=== PATIENT | male | born 1955 | race Caucasian/White ===

== ENCOUNTER 2017-04-05 13:18 | Emergency (ER) | payer MEDICARE ==
--- NOTE | 2017-04-05 13:31 | ED ---
General Adult HPI - General Stated complaint: fall off ladder Time Seen by Provider: 04/05/17 13:20 Source: RN notes reviewed - History of Present Illness Initial comments: This is a 61-year-old male who states he was on the fifth step of a 6 foot ladder when it fell over to the left and he fell down on top of the ladder on his right side. Patient complains of right lateral chest pain as well as right mid back pain. Patient states when he takes a deep breath it does worsen. Patient denies hitting his head patient denies any headache patient denies any neck pain patient denies any numbness weakness. Patient denies any upper extremity or lower extremity pain. Patient denies any abdominal pain. Patient' s only complaint is right lateral and posterior rib pain. Patient denies any sternal pain. Patient denies any sites of bleeding that he knows of. Patient is on blood thinners. - Related Data Home Medications Medication Instructions Recorded Confirmed Ezetimibe [Zetia] 10 mg PO DAILY 01/15/15 04/05/17 metFORMIN HCL 1,000 mg PO BID 01/15/15 04/05/17 Insulin Glulisine (For Pump) 0.01 units SQ-PUMP CONTINUOUS 04/05/17 04/05/17 [Apidra (For Pump)] Metoprolol Succinate (ER) [Toprol 100 mg PO QAM 04/05/17 04/05/17 XL] Metoprolol Succinate (ER) [Toprol 200 mg PO DAILY@1600 04/05/17 04/05/17 Xl] Rosuvastatin [Crestor] 10 mg PO DAILY 04/05/17 04/05/17 Warfarin Sodium [Coumadin] 2.5 mg PO MOWEFR 04/05/17 04/05/17 Warfarin [Coumadin] 5 mg PO SUTUTHSA 04/05/17 04/05/17 Previous Rx's Medication Instructions Recorded Losartan [Cozaar] 50 mg PO DAILY #30 tab 06/06/16 Hydrocodone/Acetaminophen [[place] 1 each PO Q4HR PRN #20 tab 04/05/17 5-325] Ibuprofen [Motrin] 600 mg PO Q6HR PRN #20 tab 04/05/17 Allergies Allergy/AdvReac Type Severity Reaction Status Date / Time ramipril [From Altace] Allergy Rash/Hives Verified 04/05/17 14:00 Review of Systems ROS Statement: Those systems with pertinent positive or pertinent negative responses have been documented in the HPI. ROS Other: All systems not noted in ROS Statement are negative. Past Medical History Past Medical History: Atrial Fibrillation, Diabetes Mellitus, Hyperlipidemia, Hypertension, Myocardial Infarction ([place]), Osteoarthritis ([place]) Additional Past Medical History / Comment(s): SEE DR SJ Salgado&Daniel FOR CARDIAC HISTORY Last Myocardial Infarction Date:: 2011 History of Any Multi-Drug Resistant Organisms: None Reported Past Surgical History: Cardiac Ablation, Heart Catheterization With Stent Additional Past Surgical History / Comment(s): CYSTS REMOVED FROM TAILBONE AND BY RECTUM Past Anesthesia/Blood Transfusion Reactions: No Reported Reaction Date of Last Stent Placement:: 2011 Past Psychological History: No Psychological Hx Reported Smoking Status: Former smoker Past Alcohol Use History: Occasional Additional Past Alcohol Use History / Comment(s): QUIT 3 MTHS AGO Past Drug Use History: None Reported - Past Family History Brother(s) History Unknown: Yes Sister(s) History Unknown: Yes Father Additional Family Medical History / Comment(s): smoked had wilmer at age 40 Mother Family Medical History: Cancer, Congestive Heart Failure (CHF) Additional Family Medical History / Comment(s): rectal cancer General Exam - General Exam Comments Initial Comments: GENERAL: Patient is well-developed and well-nourished. Patient is nontoxic and well- hydrated and is in mild distress. No areas of trauma seen on his head or neck. ENT: Neck is soft and supple. No significant lymphadenopathy is noted. Oropharynx is clear. Moist mucous membranes. Neck has full range of motion without eliciting any pain. EYES: The sclera were anicteric and conjunctiva were pink and moist. Extraocular movements were intact and pupils were equal round and reactive to light. Eyelids were unremarkable. PULMONARY: Unlabored respirations. Good breath sounds bilaterally. No audible rales rhonchi or wheezing was noted. CARDIOVASCULAR: There is a regular rate and rhythm without any murmurs gallops or rubs. Patient has tenderness on the lateral right ribs about the eighth and ninth rib area. Patient has pain on any deep inspiration in the same vicinity. As well as in the posterior right mid back. ABDOMEN: Soft and nontender with normal bowel sounds. No palpable organomegaly was noted. There is no palpable pulsatile mass. SKIN: Skin is clear with no lesions or rashes and otherwise unremarkable. NEUROLOGIC: Patient is alert and oriented x3. Cranial nerves II through XII are grossly intact. Motor and sensory are also intact. Normal speech, volume and content. Symmetrical smile. MUSCULOSKELETAL: Normal extremities with adequate strength and full range of motion. No lower extremity swelling or edema. No calf tenderness. LYMPHATICS: No significant lymphadenopathy is noted PSYCHIATRIC: Normal psychiatric evaluation. Course Vital Signs 04/05/17 13:31 Temperature 97.1 F L Pulse Rate 112 H Respiratory 18 Rate Blood Pressure 106/59 O2 Sat by Pulse 99 Oximetry Medical Decision Making - Medical Decision Making EKG shows atrial fibrillation at 115 bpm QRS is 70 QT interval 328 QTC is 453. Patient's EKG shows no ST segment elevation or depression or T-wave abnormalities are noted Chest x-ray and rib films show a rib fracture that is displaced and one that is not and possibly 2 more rib fractures. I went in to reexamine the patient he was having no difficulty breathing and felt pretty comfortable at this time. Patient's heart rate was a little tachycardic and I asked him about and he states that he is always tachycardic and states he also is due for his metoprolol. - Lab Data Result diagrams: 04/05/17 14:08 04/05/17 14:08 Lab Results 04/05/17 04/05/17 04/05/17 Range/Units 14:08 14:08 14:08 WBC (3.8-10.6) k/uL RBC (4.30-5.90) m/uL Hgb (13.0-17.5) gm/dL Hct (39.0-53.0) % MCV (80.0-100.0) fL MCH (25.0-35.0) pg MCHC (31.0-37.0) g/dL RDW (11.5-15.5) % Plt Count (150-450) k/uL Neutrophils % % Lymphocytes % % Monocytes % % Eosinophils % % Basophils % % Neutrophils # (1.3-7.7) k/uL Lymphocytes # (1.0-4.8) k/uL Monocytes # (0-1.0) k/uL Eosinophils # (0-0.7) k/uL Basophils # (0-0.2) k/uL PT (9.0-12.0) sec INR (<1.1) APTT (22.0-30.0) sec Sodium 137 (137-145) mmol/L Potassium 6.1 H (3.5-5.1) mmol/L Chloride 103 (98-107) mmol/L Carbon Dioxide 26 (22-30) mmol/L Anion Gap 8 mmol/L BUN 25 H (9-20) mg/dL Creatinine 1.64 H (0.66-1.25) mg/dL Est GFR (MDRD) Af Amer 52 (>60 ml/min/1.73 sqM) Est GFR (MDRD) Non-Af 43 (>60 ml/min/1.73 sqM) Glucose 164 H (74-99) mg/dL Calcium 9.2 (8.4-10.2) mg/dL Total Bilirubin 0.9 (0.2-1.3) mg/dL AST 49 (17-59) U/L ALT 64 (21-72) U/L Alkaline Phosphatase 67 (38-126) U/L Total Creatine Kinase 131 (55-170) U/L CK-MB (CK-2) 1.4 (0.0-2.4) ng/mL CK-MB (CK-2) Rel Index 1.1 Troponin I <0.012 (0.000-0.034) ng/mL Total Protein 7.1 (6.3-8.2) g/dL Albumin 3.9 (3.5-5.0) g/dL Amylase 47 (30-110) U/L Lipase 40 (23-300) U/L Serum Alcohol <10 mg/dL Blood Type A Negative Blood Type Recheck CABO Indicated Antibody Screen NEGATIVE Spec Expiration Date 04/08/2017230704/05/17 04/05/17 Range/Units 14:08 14:08 WBC 13.1 H (3.8-10.6) k/uL RBC 5.90 (4.30-5.90) m/uL Hgb 17.4 (13.0-17.5) gm/dL Hct 52.3 (39.0-53.0) % MCV 88.6 (80.0-100.0) fL MCH 29.4 (25.0-35.0) pg MCHC 33.2 (31.0-37.0) g/dL RDW 14.1 (11.5-15.5) % Plt Count 199 (150-450) k/uL Neutrophils % 79 % Lymphocytes % 11 % Monocytes % 7 % Eosinophils % 1 % Basophils % 1 % Neutrophils # 10.4 H (1.3-7.7) k/uL Lymphocytes # 1.5 (1.0-4.8) k/uL Monocytes # 0.9 (0-1.0) k/uL Eosinophils # 0.2 (0-0.7) k/uL Basophils # 0.1 (0-0.2) k/uL PT 27.1 H (9.0-12.0) sec INR 2.8 (<1.1) APTT 26.6 (22.0-30.0) sec Sodium (137-145) mmol/L Potassium (3.5-5.1) mmol/L Chloride (98-107) mmol/L Carbon Dioxide (22-30) mmol/L Anion Gap mmol/L BUN (9-20) mg/dL Creatinine (0.66-1.25) mg/dL Est GFR (MDRD) Af Amer (>60 ml/min/1.73 sqM) Est GFR (MDRD) Non-Af (>60 ml/min/1.73 sqM) Glucose (74-99) mg/dL Calcium (8.4-10.2) mg/dL Total Bilirubin (0.2-1.3) mg/dL AST (17-59) U/L ALT (21-72) U/L Alkaline Phosphatase (38-126) U/L Total Creatine Kinase (55-170) U/L CK-MB (CK-2) (0.0-2.4) ng/mL CK-MB (CK-2) Rel Index Troponin I (0.000-0.034) ng/mL Total Protein (6.3-8.2) g/dL Albumin (3.5-5.0) g/dL Amylase (30-110) U/L Lipase (23-300) U/L Serum Alcohol mg/dL Blood Type Blood Type Recheck Antibody Screen Spec Expiration Date Disposition Clinical Impression: Rib fractures Disposition: HOME SELF-CARE Condition: Good Instructions: Rib Fracture (ED) Prescriptions: Hydrocodone/Acetaminophen [[place] 5-325] 1 each PO Q4HR PRN #20 tab PRN Reason: Pain Ibuprofen [Motrin] 600 mg PO Q6HR PRN #20 tab PRN Reason: For pain Referrals: Francheska Guerrero MD [Primary Care Provider] - 1-2 days Time of Disposition: 15:32
--- NOTE | 2017-04-05 14:02 | XR ---
AP pelvis HISTORY: Trauma and pain Single frontal view of the pelvis, no comparisons Bone mineralization may be slightly reduced in the right ilium, difficult to exclude an underlying le lester, alignment are maintained. Mild loss of joint space in the hips. Degenerative disc changes in th e visualized spine. There are vascular calcifications within the pelvis. IMPRESSION: No fracture or dislocation. Consider follow-up for possible lytic lesion right ilium with outpatient workup.
--- NOTE | 2017-04-05 14:05 | XR ---
PA chest with right RIBS or graph history: Trauma and pain Frontal view of the chest, 4 views of the right ribs Correlation to prior chest x-ray 03 June 2016 Seventh rib on the right shows displaced fracture, nondisplaced eighth rib fracture is also present, possibly 5th and 6th ribs. There is no pneumothorax or pleural effusion. Cardiac mediastinal silhouet te, pulmonary vascularity and rosmery are within normal limits. No evident lung contusion. IMPRESSION: Right-sided rib fractures.
[2017-04-05 14:08] VITALS: RESP 18
[2017-04-05 14:27] LABS: Basophils # (A) 0.1 k/uL (0-0.2); Basophils % (A) 1 %; CH 29.5; CHCM 33.5; Eosinophils # (A) 0.2 k/uL (0-0.7); Eosinophils % (A) 1 %; HCT 52.3 % (39.0-53.0); HDW 2.38; HGB 17.4 gm/dL (13.0-17.5); Luc # (Auto) 0.14; Luc % (Auto) 1; Lymphocytes # (A) 1.5 k/uL (1.0-4.8); Lymphocytes % (A) 11 %; MCH 29.4 pg (25.0-35.0); MCHC 33.2 g/dL (31.0-37.0); MCV 88.6 fL (80.0-100.0); Monocytes # (A) 0.9 k/uL (0-1.0); Monocytes % (A) 7 %; Neutrophils # (A) 10.4 k/uL (1.3-7.7); Neutrophils % (A) 79 %; RDW 14.1 % (11.5-15.5); WBC 13.1 k/uL (3.8-10.6)
[2017-04-05 14:38] LABS: INR 2.8 (<1.1); Partial Thromboplastin Time 26.6 sec (22.0-30.0); Prothrombin Time 27.1 sec (9.0-12.0)
[2017-04-05 14:41] LABS: ALT 64 U/L (21-72); AST 49 U/L (17-59); Alcohol <10 mg/dL; Alkaline Phosphatase 67 U/L (38-126); Amylase 47 U/L (30-110); Anion Gap 8 mmol/L; Blood Urea Nitrogen 25 mg/dL (9-20); Calcium 9.2 mg/dL (8.4-10.2); Carbon Dioxide 26 mmol/L (22-30); Chloride 103 mmol/L (98-107); Glucose 164 mg/dL (74-99); Non-African American GFR(MDRD) 43 (>60 ml/min/1.73 sqM); Potassium 6.1 mmol/L (3.5-5.1); Sodium 137 mmol/L (137-145); Total Bilirubin 0.9 mg/dL (0.2-1.3); Total Protein 7.1 g/dL (6.3-8.2)
[2017-04-05 14:46] LABS: Creatine Kinase 131 U/L (55-170)
[2017-04-05] MEDS ORDERED: ONDANSETRON 4 MG/2 ML VIAL IVP STA (14:54)
[2017-04-05] MEDS ORDERED: HYDROmorphone 1 MG/ML 1 ML SYRINGE IVP STA (14:54)
[2017-04-05 15:00] LABS: Creatine Kinase MB 1.4 ng/mL (0.0-2.4); Troponin I <0.012 ng/mL (0.000-0.034)
[2017-04-05 15:59] VITALS: BP 113/79; PULSE 118; TEMP 97.9
== END 2017-04-05 15:59 | disposition home or self-care (01) ==
LOC: EC 13:18
DX: S22.31XA Fracture of one rib, right side, initial encounter for closed fracture (principal); I48.91 Unspecified atrial fibrillation; E11.9 Type 2 diabetes mellitus without complications; E78.5 Hyperlipidemia, unspecified; I25.2 Old myocardial infarction; Z87.891 Personal history of nicotine dependence; Z79.4 Long term (current) use of insulin; Z79.01 Long term (current) use of anticoagulants; Z79.899 Other long term (current) drug therapy; Z88.8 Allergy status to other drugs, medicaments and biological substances; Z95.5 Presence of coronary angioplasty implant and graft; W11.XXXA Fall on and from ladder, initial encounter
CPT/HCPCS: 36415; 86900; 86901; 80053; 82150; 82550; 82553; 83690; 84484; 85025; 85610; 85730; 86850; 80320; 71101; 72170; 99284; 96374; 96375; J2405; J1170

== ENCOUNTER 2017-11-19 19:22 | Emergency (ER) | payer MEDICARE ==
[2017-11-19] MEDS ORDERED: Acetaminophen-Codeine 300-30mg TAB PO STA ×2 (20:31→20:50)
[2017-11-19] MEDS ORDERED: ATENOLOL 50 MG TAB PO STA (20:31)
[2017-11-19 21:06] LABS: Basophils # (A) 0.1 k/uL (0-0.2); Basophils % (A) 0 %; CH 28.1; CHCM 32.8; Eosinophils # (A) 0.1 k/uL (0-0.7); Eosinophils % (A) 1 %; HCT 48.8 % (39.0-53.0); HDW 2.47; HGB 15.8 gm/dL (13.0-17.5); Luc # (Auto) 0.14; Luc % (Auto) 1; Lymphocytes # (A) 1.3 k/uL (1.0-4.8); Lymphocytes % (A) 9 %; MCH 27.9 pg (25.0-35.0); MCHC 32.4 g/dL (31.0-37.0); Mean Platelet Volume 7.3; Monocytes # (A) 0.6 k/uL (0-1.0); Monocytes % (A) 4 %; Neutrophils # (A) 12.1 k/uL (1.3-7.7); Neutrophils % (A) 84 %; RBC 5.67 m/uL (4.30-5.90); RDW 14.2 % (11.5-15.5); WBC 14.3 k/uL (3.8-10.6); WBC (Perox) 13.29
[2017-11-19 21:14] LABS: Anion Gap 12 mmol/L; Blood Urea Nitrogen 18 mg/dL (9-20); Calcium 9.6 mg/dL (8.4-10.2); Carbon Dioxide 25 mmol/L (22-30); Chloride 100 mmol/L (98-107); Glucose 133 mg/dL (74-99); Non-African American GFR(MDRD) >60 (>60 ml/min/1.73 sqM); Sodium 137 mmol/L (137-145)
[2017-11-19 21:18] LABS: Potassium 4.9 mmol/L (3.5-5.1)
[2017-11-19 21:35] LABS: INR 2.2 (<1.2); Prothrombin Time 19.6 sec (9.0-12.0)
--- NOTE | 2017-11-19 22:45 | XR ---
PROCEDURE: XR knee complete RT, 3 views DATE AND TIME: 11/19/2017 8:57 PM REFERRING PHYSICIAN: Fermín Bell CLINICAL INDICATION: PHH, Pain. Swelling after fall TECHNIQUE: Department protocol. COMPARISON: None FINDINGS: There is no fracture or malalignment. Prominent osteoarthritis changes are noted and promin ent atherosclerotic arterial calcifications noted. The quadriceps tendon is heterogeneous, as opposed to the patellar tendon. If there is clinical najma rn for quadriceps tear then MRI can be considered. The soft tissues are otherwise unremarkable. IMPRESSION: 1. Negative for fracture or malalignment. 2. Extensor mechanism finding noted.
--- NOTE | 2017-11-19 23:07 | ED ---
Fall HPI - General Chief Complaint: Fall Stated Complaint: Fall/Knee Pain Time Seen by Provider: 11/19/17 19:29 Source: patient Mode of arrival: wheelchair - History of Present Illness Initial Comments: 62-year-old male with past medical history of newly diagnosed atrial fibrillation on atenolol and Coumadin, DM, HIV, HTN, [place], OA presented for evaluation of right knee pain following fall. He states that he was walking on his driveway and slipped. This caused his left leg to slide in front of him however he ended up sitting on his flexed right knee. He denies hearing any pop however when he stood up she was unable to extend the knee. He also states that there is swelling and an "empty space"just proximal to the knee. He denies any chest pain, shortness breath, lightheadedness, dizziness, palpitations. - Related Data Home Medications Medication Instructions Recorded Confirmed Ezetimibe [Zetia] 10 mg PO DAILY 01/15/15 11/19/17 metFORMIN HCL 1,000 mg PO BID 01/15/15 11/19/17 Insulin Glulisine (For Pump) 0.01 units SQ-PUMP CONTINUOUS 04/05/17 11/19/17 [Apidra (For Pump)] Rosuvastatin [Crestor] 10 mg PO DAILY 04/05/17 11/19/17 Warfarin Sodium [Coumadin] 2.5 mg PO MOWEFR 04/05/17 11/19/17 Warfarin [Coumadin] 5 mg PO SUTUTHSA 04/05/17 11/19/17 Empagliflozin [Jardiance] 10 mg PO DAILY 11/19/17 11/19/17 Metoprolol Succinate [Toprol XL] 200 mg PO BID 11/19/17 11/19/17 Tamsulosin [Flomax] 0.4 mg PO DAILY 11/19/17 11/19/17 Previous Rx's Medication Instructions Recorded Losartan [Cozaar] 50 mg PO DAILY #30 tab 06/06/16 HYDROcodone/APAP 5-325MG [[place] 1 - 2 tab PO Q6HR PRN #20 tab 11/19/17 5-325] Allergies Allergy/AdvReac Type Severity Reaction Status Date / Time ramipril [From Altace] Allergy Rash/Hives Verified 11/19/17 19:43 Review of Systems ROS Statement: Those systems with pertinent positive or pertinent negative responses have been documented in the HPI. ROS Other: All systems not noted in ROS Statement are negative. Constitutional: Denies: fever, chills Eyes: Denies: eye pain, eye discharge ENT: Denies: ear pain, throat pain Respiratory: Denies: cough, dyspnea, wheezes Cardiovascular: Denies: chest pain, palpitations, dyspnea on exertion, orthopnea , syncope Endocrine: Denies: fatigue, polydipsia Gastrointestinal: Denies: abdominal pain, nausea, vomiting Genitourinary: Denies: urgency, dysuria Musculoskeletal: Reports: arthralgia (Right knee pain). Denies: back pain, myalgia Skin: Denies: rash, lesions Neurological: Denies: headache, weakness Psychiatric: Denies: anxiety, depression Hematological/Lymphatic: Denies: easy bleeding, easy bruising Past Medical History Past Medical History: Atrial Fibrillation, Diabetes Mellitus, Hyperlipidemia, Hypertension, Myocardial Infarction ([place]), Osteoarthritis (OA) Additional Past Medical History / Comment(s): SEE DR GUSTAFSON H&P FOR CARDIAC HISTORY Last Myocardial Infarction Date:: 2011 History of Any Multi-Drug Resistant Organisms: None Reported Past Surgical History: Cardiac Ablation, Heart Catheterization With Stent Additional Past Surgical History / Comment(s): CYSTS REMOVED FROM TAILBONE AND BY RECTUM Past Anesthesia/Blood Transfusion Reactions: No Reported Reaction Date of Last Stent Placement:: 2011 Past Psychological History: No Psychological Hx Reported Smoking Status: Former smoker Past Alcohol Use History: Occasional Past Drug Use History: None Reported - Past Family History Brother(s) History Unknown: Yes Sister(s) History Unknown: Yes Father Additional Family Medical History / Comment(s): smoked had yesya at age 40 Mother Family Medical History: Cancer, Congestive Heart Failure (CHF) Additional Family Medical History / Comment(s): rectal cancer General Exam Limitations: no limitations General appearance: alert, in no apparent distress Head exam: Present: atraumatic, normocephalic, normal inspection Eye exam: Present: normal appearance, PERRL, EOMI. Absent: scleral icterus, conjunctival injection, periorbital swelling ENT exam: Present: normal exam, mucous membranes moist Neck exam: Present: normal inspection. Absent: tenderness, meningismus, lymphadenopathy Respiratory exam: Present: normal lung sounds bilaterally. Absent: respiratory distress, wheezes, rales, rhonchi, stridor Cardiovascular Exam: Present: tachycardia, irregular rhythm, normal heart sounds. Absent: systolic murmur, diastolic murmur, rubs, gallop, clicks GI/Abdominal exam: Present: soft, normal bowel sounds. Absent: distended, tenderness, guarding, rebound, rigid Rectal exam: Present: deferred Extremities exam: Present: tenderness, normal capillary refill, joint swelling, other (Swelling of right knee with absence of right patellar tendo with passive flexion of the knee. There is less tissue in that space than would be expected and the bone is easily palpable underneath. ). Absent: full ROM (Patient is unable to extend the knee actively), pedal edema Back exam: Present: normal inspection Neurological exam: Present: alert, oriented X3, CN II-XII intact Psychiatric exam: Present: normal affect, normal mood Skin exam: Present: warm, dry, intact, normal color. Absent: rash Course Vital Signs 11/19/17 11/19/17 11/19/17 19:36 22:58 23:25 Temperature 97.7 F 98 F Pulse Rate 130 H 114 H 103 H Respiratory 18 20 18 Rate Blood Pressure 112/92 105/68 113/65 O2 Sat by Pulse 96 95 98 Oximetry Medical Decision Making - Medical Decision Making 62-year-old male presenting for evaluation of mechanical fall from standing with injury to the right knee. On physical examination the patient is unable to extend the right knee and on palpating just proximal to the knee there is no identifiable quadriceps tendon connecting to the patella. There is a significant effusion in this area as well. The patient is also in A. fib with RVR however he states he has not taken his atenolol this evening. The patient was provided with pain control and atenolol and showed an improvement in his heart rate and pain control.Labs revealed a mild leukocytosis however his INR is within therapeutic ranges. X-ray of the knee is negative for fracture or malalignment however the quadriceps tendon is heterogenous as opposed to the patellar tendon raising concern for quadriceps tear. The patient was reevaluated and had no change in his physical exam with the exception of the improvement in heart rate. He was informed of this result and through shared decision making it was determined that he would be discharged. The patient was discussed with Dr. Dove who stated that he would be willing to see the patient tomorrow in his office and agreed with plan to provide crutches, knee immobilizer, and pain control. The patient and his family were informed of this discussion and stated that they may make an appointment with him however they have another orthopedic surgeon at the family's seen and he may go to that provider. They were further given return instructions. The patient and his family acknowledged an understanding of all information provided and agreed with this plan of care. - Lab Data Result diagrams: 11/19/17 20:43 11/19/17 20:43 Lab Results 11/19/17 11/19/17 11/19/17 Range/Units 20:43 20:43 20:43 WBC 14.3 H (3.8-10.6) k/uL RBC 5.67 (4.30-5.90) m/uL Hgb 15.8 (13.0-17.5) gm/dL Hct 48.8 (39.0-53.0) % MCV 86.0 (80.0-100.0) fL MCH 27.9 (25.0-35.0) pg MCHC 32.4 (31.0-37.0) g/dL RDW 14.2 (11.5-15.5) % Plt Count 291 (150-450) k/uL Neutrophils % 84 % Lymphocytes % 9 % Monocytes % 4 % Eosinophils % 1 % Basophils % 0 % Neutrophils # 12.1 H (1.3-7.7) k/uL Lymphocytes # 1.3 (1.0-4.8) k/uL Monocytes # 0.6 (0-1.0) k/uL Eosinophils # 0.1 (0-0.7) k/uL Basophils # 0.1 (0-0.2) k/uL PT 19.6 H (9.0-12.0) sec INR 2.2 H (<1.2) Sodium 137 (137-145) mmol/L Potassium 4.9 (3.5-5.1) mmol/L Chloride 100 (98-107) mmol/L Carbon Dioxide 25 (22-30) mmol/L Anion Gap 12 mmol/L BUN 18 (9-20) mg/dL Creatinine 1.10 (0.66-1.25) mg/dL Est GFR (MDRD) Af Amer >60 (>60 ml/min/1.73 sqM) Est GFR (MDRD) Non-Af >60 (>60 ml/min/1.73 sqM) Glucose 133 H (74-99) mg/dL Calcium 9.6 (8.4-10.2) mg/dL 11/19/17 22:44 Atrial flutter with variable AV block. Ventricular rate 124, QRS 72, QT/QTC 332 /476. Disposition Clinical Impression: Knee pain, Atrial fibrillation with RVR, Leukocytosis Disposition: HOME SELF-CARE Condition: Stable Instructions: Fall Prevention for Older Adults (ED) Additional Instructions: Please follow up with Dr. Dove or your preferred orthopedic surgeon for follow up tomorrow. There is concern for RUPTURED QUADRICEPS TENDON and you have been placed in a knee immobilizer.You will also be given a prescription for pain control and crutches. Please keep your appointment with your brim molder for tomorrow and make an appointment with the pathology specialist. Prescriptions: HYDROcodone/APAP 5-325MG [[place] 5-325] 1 - 2 tab PO Q6HR PRN #20 tab PRN Reason: Analgesia Referrals: Francheska Guerrero MD [Primary Care Provider] - 1-2 days Time of Disposition: 23:13
[2017-11-19 23:32] VITALS: BP 113/65; PULSE 103; RESP 18; TEMP 98
== END 2017-11-19 23:31 | disposition home or self-care (01) ==
LOC: EC 19:22
DX: I48.91 Unspecified atrial fibrillation (principal); D72.829 Elevated white blood cell count, unspecified; M25.561 Pain in right knee; E11.9 Type 2 diabetes mellitus without complications; E78.5 Hyperlipidemia, unspecified; I10 Essential (primary) hypertension; I25.2 Old myocardial infarction; M19.90 Unspecified osteoarthritis, unspecified site; Z95.5 Presence of coronary angioplasty implant and graft; Z87.891 Personal history of nicotine dependence; Z79.4 Long term (current) use of insulin; Z79.01 Long term (current) use of anticoagulants; Z79.899 Other long term (current) drug therapy; Z88.8 Allergy status to other drugs, medicaments and biological substances; W01.0XXA Fall on same level from slipping, tripping and stumbling without subsequent striking against object, initial encounter; Y92.89 Other specified places as the place of occurrence of the external cause; Y93.01 Activity, walking, marching and hiking
CPT/HCPCS: 36415; 93005; 80048; 85025; 85610; 73562; 99284; L1830

== ENCOUNTER 2017-12-01 09:07 | Day surgery (SDC) | payer MEDICARE ==
--- NOTE | 2017-11-30 14:02 | HP ---
HISTORY AND PHYSICAL CHIEF COMPLAINT: Right knee pain and leg weakness. HISTORY OF PRESENT ILLNESS: The patient is a 62-year-old retired male who presents after injuring himself on 11/19/2017. He slipped and fell on the ice. He has been unable to really extend his knee ever since. He has been using an immobilizer and a walker. He denies previous problems. PAST MEDICAL HISTORY: Significant for atrial fibrillation, type 2 diabetes, hypercholesterolemia, hypertension. PAST SURGICAL HISTORY: Significant for previous cardiac ablation. CURRENT MEDICATIONS: Metformin, Cozaar, metoprolol, warfarin, Zetia and insulin. ALLERGIES: He notes ALLERGIES TO ALTACE. FAMILY HISTORY: Significant for cancer. SOCIAL HISTORY: Significant for previous tobacco use; however, he quit in December 2016. REVIEW OF SYSTEMS: Sixteen point review of systems otherwise reviewed and is noncontributory. PHYSICAL EXAMINATION: On examination, the patient is approximately 5 foot 11, 244 pounds of endomorphic habitus. HEENT exam is nonfocal. NECK: Supple. He has painless passive motion of the right hip. He is unable to actively extend the right knee. He has a palpable defect at the superior pole of patella. He has a significant extensor lag. He has a moderate effusion. He is stable to varus and valgus stress. Homans is negative. His distal neurovascular appears to be intact in the right lower extremity. X-rays obtained in the office of the right knee shows patella [place]. There is also vascular calcifications. IMPRESSION: 1. Right acute quadriceps tendon rupture. 2. Atrial fibrillation on anticoagulation. 3. Diabetes. 4. Peripheral vascular disease. RECOMMENDATIONS: I talked to the patient and his family regarding his treatment options. At this point, I recommend proceeding with surgical fixation of the acute quadriceps tendon rupture. We will likely keep the patient for a 23-hour hold postoperatively. We will reinstitute his Coumadin after the procedure. MMODL / IJN: [id number] /
[2017-12-01] MEDS ORDERED: DEXAMETHASONE SOD PHOSPHATE 10 MG/ML 1 ML VIAL IV ONE (09:13)
[2017-12-01] MEDS ORDERED: LIDOCAINE 1% 20 ML VIAL (10MG/ML) FOR IV START INTRADERMA PRN (09:13)
[2017-12-01] MEDS ORDERED: ONDANSETRON 4 MG/2 ML VIAL IVP ONE (09:13)
[2017-12-01] MEDS ORDERED: MIDAZOLAM 2 MG/2 ML VIAL IV PRN (09:13)
[2017-12-01] MEDS ORDERED: SCOPOLAMINE 1.5MG/72HR PATCH TRANSDERM ONE (09:13)
[2017-12-01] MEDS: LACTATED RINGERS 1,000 ML IV SCH ×2 (09:46→14:14)
[2017-12-01 09:52] LABS: Glucose,Whole Blood 149 mg/dL (75-99)
[2017-12-01 10:13] LABS: INR 1.1 (<1.2); Prothrombin Time 10.4 sec (9.0-12.0)
[2017-12-01] MEDS ORDERED: LIDOCAINE 1% INJ 10MG/ML (20 ML MDV) ONE (11:15)
[2017-12-01] MEDS ORDERED: PROPOFOL 10 MG/ML 20 ML VIAL IV ONE (11:15)
[2017-12-01] MEDS ORDERED: fentaNYL (PF) 50 MCG/ML 2 ML AMP ONE (11:15)
[2017-12-01] MEDS ORDERED: PHENYLEPHRINE-0.9% NACL SYG 1 MG/10 ML SYRINGE ONE (11:15)
[2017-12-01] MEDS ORDERED: SODIUM CHLORIDE 0.9% 50 ML with ceFAZolin 2,000 MG IV ONE ×2 (11:28)
[2017-12-01] MEDS ORDERED: ceFAZolin 3,000 MG in SODIUM CHLORIDE 0.9% IRRIGATIO 3,000 ML IRRIGATION ONE (11:35)
[2017-12-01] MEDS ORDERED: HYDROmorphone 1 MG/ML 1 ML SYRINGE IVP PRN ×2 (12:11)
[2017-12-01] MEDS ORDERED: HYDROcodone/APAP 5-325MG 1 EACH TAB PO PRN (12:11)
[2017-12-01] MEDS ORDERED: NALOXONE 0.4 MG/ML 1 ML VIAL IV PRN (12:11)
[2017-12-01] MEDS ORDERED: ONDANSETRON 4 MG/2 ML VIAL IVP PRN (12:11)
[2017-12-01] MEDS ORDERED: MAGNESIUM HYDROXIDE 2,400 MG/10 ML CUP PO PRN (12:11)
--- NOTE | 2017-12-01 12:35 | P.OP ---
Date of Procedure: 12/01/17 Preoperative Diagnosis: Right quadriceps tendon rupture Postoperative Diagnosis: Same Procedure(s) Performed: Open right quadriceps tendon repair Anesthesia: MAN Surgeon: Erik Gonzales Wallpaper Installer #1: Luis Randolph Estimated Blood Loss (ml): 30 Pathology: none sent Condition: stable Disposition: PACU Indications for Procedure: The patient's a 62-year-old male who presents after falling injuring his right knee. Upon evaluation he was noted of evidence of an acute quadriceps tendon rupture. A discussion of the risks and benefits of operative intervention was made with the patient and his family. Specific risks of surgery to include infection, neurovascular injury, development of blood clots, possible tendon rerupture, possible postoperative stiffness and need for subsequent procedures was discussed. Informed consent was obtained. Operative Findings: As below Description of Procedure: The patient was brought to the operating room, and after induction of general anesthesia the right lower extremity was prepped and draped in a normal fashion. The tourniquet was inflated to 270 mmHg. A longitudinal incision extending approximately 3 finger breaths above the superior pole of the patella extending to the distal aspect of the patella was made. The skin and subcu tissues were divided sharply. A large seroma was encountered. The complete rupture of the quadriceps off of the superior pole of patella was noted. Medial and lateral retinacular tears were also present. The articular surface the patella was inspected and was felt to be intact. The soft tissue just off the articular surface was then debrided exposing a bleeding bony surface. A bur was used to decorticate lightly. #5 Ethibond suture was placed in a Bunell fashion through the quadriceps tendon. 2 sutures were placed. 3 drill holes were then made just off the articular surface of the superolateral pole of patella exiting anteriorly. The previously placed Ethibond was then passed through the drill holes. With the knee in full extension the quadricep was then reapproximated to the superior pole with these sutures. The medial and lateral retinacular tears were closed with #1 Vicryl suture. The subcu change tissues were reapproximated with interrupted 2-0 Vicryl sutures. The skin was reapproximated with 3-0 subcuticular Prolene suture. Steri-Strips were applied. A sterile dressing was applied in addition to his brace locked in full extension.
[2017-12-01] MEDS: HYDROmorphone 0.5 MG/0.5 ML SYRINGE IVP PRN ×4 (12:48→13:09)
[2017-12-01 12:57] LABS: Glucose,Whole Blood 147 mg/dL (75-99)
[2017-12-01] MEDS ORDERED: LACTATED RINGERS 1,000 ML IV ONE (13:05)
[2017-12-01] MEDS: HYDROcodone/APAP 5-325MG 1 EACH TAB PO PRN (15:12)
[2017-12-01] MEDS: traMADol 50 MG TAB PO SCH ×3 (15:13→22:31)
--- NOTE | 2017-12-01 15:23 | XR ---
EXAMINATION TYPE: XR knee limited RT DATE OF EXAM: 12/01/2017 CLINICAL HISTORY: Right knee pain and status post quadriceps tendon repair. TECHNIQUE: Portable AP and crosstable lateral views of the right knee are obtained immediately posto peratively. COMPARISON: 11/19/2017 FINDINGS: Metallic hardware from total external fixation device is seen and appears satisfactory in alignment and position. There is evidence of recent surgery with subcutaneous emphysema and diffuse soft tissue swelling of the right lower extremity surrounding the right knee. Moderate tricompartment al osteoarthritic change is identified as protuberant osteophytes, attenuation and joint space narrow ing. Small suprapatellar joint effusion is present, likely reactive and postsurgical. Moderate athero matous changes are noted of the femoral artery and its branches. IMPRESSION: Postsurgical changes of a quadriceps tendon repair and stable moderate tricompartmental a rthrosis of the right knee.
[2017-12-01 17:01] LABS: Glucose,Whole Blood 193 mg/dL (75-99)
[2017-12-01] MEDS: metFORMIN 500 MG TAB PO SCH (18:08)
[2017-12-01] MEDS ORDERED: Insulin Glulisine (For Pump) 100 UNIT/ML VIAL SQ-PUMP SCH (18:30)
[2017-12-01] MEDS ORDERED: INSULIN PUMP BASAL RATES 1 EACH MISC MISCELLANE PRN (18:53)
[2017-12-01] MEDS ORDERED: INSPUCOR MISCELLANE PRN (18:53)
[2017-12-01] MEDS ORDERED: INSULIN ASPART 100 UNIT/ML 1 ML 10 ML VIAL SQ PRN (18:53)
[2017-12-01] MEDS ORDERED: ALPRAZolam 0.25 MG TAB PO PRN (19:36)
[2017-12-01] MEDS: SENNOSIDES-DOCUSATE SODIUM 1 EACH TAB PO SCH (19:40)
[2017-12-01] MEDS ORDERED: WARFARIN 5 MG TAB PO ONE (19:45)
[2017-12-01 20:35] LABS: Glucose,Whole Blood 224 mg/dL (75-99)
[2017-12-01] MEDS ORDERED: METOPROLOL SUCCINATE 200 MG PO SCH (21:00)
[2017-12-01] MEDS ORDERED: NON-FORMULARY DRUG (Metformin Hcl [Metformin Hcl] 1,000 MG) PO SCH (21:00)
[2017-12-01] MEDS: METOPROLOL SUCCINATE (ER) 100 MG TAB.ER.24H PO SCH (22:29)
[2017-12-01] MEDS: ceFAZolin IN SWFI 2 GM/20 ML SYRINGE IVP SCH (22:29)
[2017-12-01] MEDS: ENOXAPARIN 30 MG/0.3 ML SYRINGE SQ SCH (22:29)
[2017-12-01] MEDS: INSULIN PUMP MEAL BOLUS 1 UNIT MISC MISCELLANE SCH (22:30)
[2017-12-02 02:13] LABS: Glucose,Whole Blood 174 mg/dL (75-99)
[2017-12-02] MEDS: ceFAZolin IN SWFI 2 GM/20 ML SYRINGE IVP SCH (05:12)
--- NOTE | 2017-12-02 06:37 | CONS ---
CONSULTATION DATE OF SERVICE: 12/01/2017 REASON FOR CONSULTATION: Recommendations regarding advice regarding management diabetes and other medical issues requested by Orthopedic Surgery. HISTORY OF PRESENT ILLNESS: This 62-year-old gentleman with a past history of multiple medical problems including atrial ablation, diabetes, hypertension, hyperlipidemia, history of myocardial infarction, cardiac ablation, CAD stent being followed by Dr. Guerrero in the outpatient setting underwent repair of quadriceps tendon repair on the right by Dr. Gonzales after rupture. There is no history of fever, rigors. No history of headache, loss of consciousness, seizures. The patient using insulin pump at home. The blood sugars 140- 190. The patient is also on Coumadin for atrial fibrillation. The current INR is 1. Patient is started on Lovenox and Coumadin will be initiated today. There is no history of fever, rigors. No history of headache, loss of consciousness, seizures. PAST MEDICAL HISTORY: Atrial ablation, diabetes, hypertension, hyperlipidemia, myocardial infarction, history of cardiac ablation. MEDICATIONS: Prior to admission include home medications are: 1. Metformin 1000 mg p.o. b.i.d. 2. Coumadin 5 mg Thursday, Thursday, , Thursday and 2.5 mg Thursday, Thursday and Thursday. 3. Flomax 0.4 daily. 4. Crestor 10 mg daily. 5. Toprol-XL 200 mg p.o. b.i.d. 6. Cozaar 50 mg p.o. daily. 7. Apidra pump. 8. Motrin 600 mg. 9. [place] 1-2 q.6h p.r.n. 10.Zetia 10 mg. 11.Aspirin 81 mg daily. ALLERGIES: RAMIPRIL. FAMILY HISTORY: History of cancer, CHF in the family. SOCIAL HISTORY: Previous history of smoking. No occasional alcohol intake. REVIEW OF SYSTEMS: ENT: No diminished hearing or vision. CARDIOVASCULAR: As mentioned earlier. RESPIRATORY: No cough or hemoptysis. GI: No nausea. : No dysuria. NERVOUS SYSTEM: No numbness, weakness. ALLERGY/IMMUNOLOGY: No asthma or hayfever. MUSCULOSKELETAL: As mentioned. HEMATOLOGY: No history of anemia. ENDOCRINE: Diabetes. CONSTITUTIONAL: As mentioned earlier. DERMATOLOGY: Negative. RHEUMATOLOGY: Negative. PSYCHIATRY: As mentioned earlier. PHYSICAL EXAMINATION: Alert and oriented x3. Pulse is 117, blood pressure 151/82, respiration 18, temperature normal. Pulse ox 94% on room air. HEENT: Conjunctivae normal. Oral mucosa moist. Neck is no jugular venous distention. No carotid bruit. No lymph node enlargement. CARDIOVASCULAR: S1, S2. No S3, no S4. RESPIRATORY: Breath sounds diminished in the bases. No rhonchi. No crackles. ABDOMEN: Soft, nontender. No mass palpable. LEGS: Status post surgery on the right. NERVOUS SYSTEM: Higher functions as mentioned. Moves all four limbs. LYMPHATICS: No lymph nodes palpable. SKIN: No ulcer, rash or bleeding. LABS: Glucose 149, 147, 118. INR 1.1. ASSESSMENT: 1. Status post repair of the right quadriceps tendon rupture. 2. Diabetes mellitus type 2. 3. Atrial fibrillation. 4. Hypertension. 5. Hyperlipidemia. 6. History of myocardial infarction. 7. History degenerative joint disease. 8. History of cardiac ablation. 9. History of coronary artery disease, stent. RECOMMENDATIONS AND DISCUSSION: This 62-year-old gentleman who presented with multiple complex medical issues, we will monitor the patient closely. Continue the current management and symptomatic treatment. Will initiate home medications. Also recommend remote telemetry. Otherwise orthopedic DVT protocol may be initiated with Lovenox coverage. We will follow the patient closely with you. The patient may be asked to follow up with Dr. Guerrero after discharge and we will recommend to continue the insulin pump and monitor blood sugars closely. Thank you, Dr. Gonzales, for letting us participate in the care of this patient. MMODL / IJN: [id number] /
[2017-12-02 06:54] LABS: Glucose,Whole Blood 142 mg/dL (75-99)
[2017-12-02] MEDS: HYDROcodone/APAP 5-325MG 1 EACH TAB PO PRN ×2 (06:54→22:39)
[2017-12-02 07:06] LABS: Basophils % (A) 0 %; Eosinophils % (A) 0 %; HCT 41.8 % (39.0-53.0); HGB 13.2 gm/dL (13.0-17.5); Lymphocytes # (A) 1.6 k/uL (1.0-4.8); Lymphocytes % (A) 14 %; MCH 27.1 pg (25.0-35.0); MCHC 31.6 g/dL (31.0-37.0); MCV 85.9 fL (80.0-100.0); Mean Platelet Volume 7.1; Monocytes # (A) 0.6 k/uL (0-1.0); Monocytes % (A) 5 %; Neutrophils # (A) 9.4 k/uL (1.3-7.7); Neutrophils % (A) 80 %; Platelet Count 199 k/uL (150-450); RBC 4.87 m/uL (4.30-5.90); WBC 11.9 k/uL (3.8-10.6)
[2017-12-02 07:07] LABS: INR 1.1 (<1.2); Prothrombin Time 10.7 sec (9.0-12.0)
[2017-12-02 07:32] LABS: Anion Gap 8 mmol/L; Blood Urea Nitrogen 18 mg/dL (9-20); Calcium 9.3 mg/dL (8.4-10.2); Carbon Dioxide 28 mmol/L (22-30); Chloride 101 mmol/L (98-107); Glucose 162 mg/dL (74-99); Potassium 4.6 mmol/L (3.5-5.1); Sodium 137 mmol/L (137-145)
[2017-12-02] MEDS: TAMSULOSIN 0.4 MG CAP.ER.24H PO SCH (07:56)
[2017-12-02] MEDS: metFORMIN 500 MG TAB PO SCH ×2 (07:56→17:51)
[2017-12-02] MEDS: INSULIN PUMP MEAL BOLUS 1 UNIT MISC MISCELLANE SCH ×4 (07:57→20:19)
[2017-12-02] MEDS: LOSARTAN 50 MG TAB PO SCH (08:23)
[2017-12-02] MEDS: traMADol 50 MG TAB PO SCH ×4 (08:23→22:39)
[2017-12-02] MEDS: ASPIRIN 81 MG PO SCH (08:23)
[2017-12-02] MEDS: FAMOTIDINE 20 MG TAB PO SCH (08:23)
[2017-12-02] MEDS: ATORVASTATIN 10 MG TAB PO SCH (08:23)
[2017-12-02] MEDS: ENOXAPARIN 30 MG/0.3 ML SYRINGE SQ SCH ×2 (08:23→20:19)
[2017-12-02] MEDS: METOPROLOL SUCCINATE (ER) 100 MG TAB.ER.24H PO SCH ×2 (08:24→20:18)
[2017-12-02] MEDS: EZETIMIBE 10 MG TAB PO SCH (08:24)
[2017-12-02] MEDS ORDERED: NON-FORMULARY DRUG (Rosuvastatin 10 MG) PO SCH (09:00)
[2017-12-02 11:44] LABS: Glucose,Whole Blood 170 mg/dL (75-99)
--- NOTE | 2017-12-02 12:47 | P.PN ---
Subjective Progress Note Date: 12/02/17 Principal diagnosis: Status post open left quadriceps tendon repair and medial and lateral retinacular repair Patient seen today resting in his hospital bed, he appears comfortable. His pain is controlled. He is ambulated well with therapy. He is utilizing the knee brace at this time. He denies any headaches, lightheadedness, chest pain or shortness of breath. Objective - Vital Signs Vital signs: Vital Signs Temp 98.0 F 12/02/17 07:00 Pulse 95 12/02/17 07:00 Resp 16 12/02/17 07:00 BP 134/87 12/02/17 07:00 Pulse Ox 94 L 12/02/17 07:00 Intake & Output 12/01/17 12/02/17 12/02/17 18:59 06:59 18:59 Intake Total 1076 840 Output Total 30 625 Balance 1046 215 Weight 110.677 kg Intake: IV 1076 Intake, IV Titration 600 Amount Lactated Ringers 1,000 ml 600 @ 50 mls/hr IV .Q20H [facility] Rx#:[id number] Oral 240 Output: Urine 625 Estimated Blood Loss 30 Other: Voiding Method Urinal Urinal # Voids 1 - Exam Left lower extremity: Postop brace and bandage are in good position. Plantar flexion and dorsiflexion are intact. Dorsal pedis pulses 2+. Sensory exam to light touch is intact. - Labs CBC & Chem 7: 12/02/17 06:17 12/02/17 06:17 Labs: Abnormal Lab Results - Last 24 Hours (Table) 12/01/17 12/01/17 12/01/17 Range/Units 12:54 17:00 20:33 WBC (3.8-10.6) k/uL Neutrophils # (1.3-7.7) k/uL Glucose (74-99) mg/dL POC Glucose (mg/dL) 147 H 193 H 224 H (75-99) mg/dL 12/02/17 12/02/17 12/02/17 Range/Units 02:07 06:17 06:17 WBC 11.9 H (3.8-10.6) k/uL Neutrophils # 9.4 H (1.3-7.7) k/uL Glucose 162 H (74-99) mg/dL POC Glucose (mg/dL) 174 H (75-99) mg/dL 12/02/17 12/02/17 Range/Units 06:51 11:41 WBC (3.8-10.6) k/uL Neutrophils # (1.3-7.7) k/uL Glucose (74-99) mg/dL POC Glucose (mg/dL) 142 H 170 H (75-99) mg/dL Assessment and Plan Plan: Assessment: 1. Postop day #1 status post open left quadriceps tendon repair, medial and lateral retinacular repair Plan: 1. Pain control, continue use of oral medication 2. Continue use of hinge knee brace locked in full extension 3. Ice and elevate 4. GI and DVT prophylaxis, continue Lovenox and Xarelto 5. Medical recommendations 6. Toe-touch weightbearing with walker 7. Discharge planning: Patient likely be discharged home tomorrow Time with Patient: Less than 30
[2017-12-02] MEDS ORDERED: INSULIN PUMP ACTIVE INSULIN 1 EACH MISC MISCELLANE PRN (13:25)
[2017-12-02] MEDS ORDERED: INSULIN PUMP TARGET GLUCOSE 1 EACH MISC MISCELLANE PRN (13:25)
[2017-12-02 16:54] LABS: Glucose,Whole Blood 123 mg/dL (75-99)
[2017-12-02] MEDS ORDERED: WARFARIN 7.5 MG TAB PO ONE (18:00)
--- NOTE | 2017-12-02 20:05 | PN ---
PROGRESS NOTE DATE OF SERVICE: 12/29/2016. HISTORY: This 62-year-old gentleman who was admitted after repair of the right quadriceps tendon rupture is being closely monitored. The patient has multiple complications including diabetes type 2 and history of atrial fibrillation also. The Coumadin has been reintroduced, at this time the INR is 1.1 today. The patient is slated to obtain 7.5 mg. No chest pain. No palpitations. No fever. PHYSICAL EXAM: Alert, oriented x3. Pulse is 80, blood pressure 103/67, respirations 18, temperature 97.8, pulse ox 97% room air. HEENT: Conjunctivae normal. NECK: Supple. No JVD. CARDIOVASCULAR: S1 and S2 muffled. RESPIRATORY: Breath sounds diminished at the bases. No rhonchi or crackles. ABDOMEN: Soft, nontender. EXTREMITIES: Legs, status post right knee surgery. NERVOUS SYSTEM: No focal deficits. LABS: WBC 7.8, Accu-Cheks 142, 171, 123. ASSESSMENT: 1. Status post repair of the right quadriceps tendon rupture. 2. Diabetes type 2. 3. Atrial fibrillation. 4. Coumadin monitoring. 5. Hypertension. 6. Hyperlipidemia. 7. History of myocardial infarction. 8. History of degenerative joint disease. 9. History of cardiac ablation. 10.History of coronary artery disease with stent. RECOMMENDATIONS: Recommend to continue current management current medications. Continue with insulin pump. Otherwise continue with monitoring PT and INR. Continue the rest of the medications. Further recommendations to follow. MMODL / IJN: [id number] /
[2017-12-02] MEDS: SENNOSIDES-DOCUSATE SODIUM 1 EACH TAB PO SCH (20:13)
[2017-12-02 20:21] LABS: Glucose,Whole Blood 94 mg/dL (75-99)
[2017-12-02 22:59] VITALS: BMI 34.0
[2017-12-03 01:55] VITALS: RESP 16
[2017-12-03 03:47] LABS: Glucose,Whole Blood 94 mg/dL (75-99)
[2017-12-03 07:12] LABS: Glucose,Whole Blood 102 mg/dL (75-99)
[2017-12-03] MEDS: INSULIN PUMP MEAL BOLUS 1 UNIT MISC MISCELLANE SCH ×2 (08:31→13:21)
[2017-12-03] MEDS: ATORVASTATIN 10 MG TAB PO SCH (08:32)
[2017-12-03] MEDS: metFORMIN 500 MG TAB PO SCH (08:32)
[2017-12-03] MEDS: TAMSULOSIN 0.4 MG CAP.ER.24H PO SCH (08:32)
[2017-12-03] MEDS: FAMOTIDINE 20 MG TAB PO SCH (08:32)
[2017-12-03] MEDS: EZETIMIBE 10 MG TAB PO SCH (08:32)
[2017-12-03] MEDS: LOSARTAN 50 MG TAB PO SCH (08:32)
[2017-12-03] MEDS: ASPIRIN 81 MG PO SCH (08:32)
[2017-12-03] MEDS: HYDROcodone/APAP 5-325MG 1 EACH TAB PO PRN (08:35)
[2017-12-03] MEDS: traMADol 50 MG TAB PO SCH ×2 (08:36→13:20)
[2017-12-03] MEDS: ENOXAPARIN 30 MG/0.3 ML SYRINGE SQ SCH (09:14)
[2017-12-03] MEDS: METOPROLOL SUCCINATE (ER) 100 MG TAB.ER.24H PO SCH (09:14)
--- NOTE | 2017-12-03 09:51 | P.DS ---
Providers Date of admission: 12-01-2017 Expected date of discharge: 12/03/17 Attending physician: Erik Gonzales Consults: 12/01/17 14:05 Consult Physician Routine Consulting Provider: Angela Tay Consult Reason/Comments: Medical Management Do you want consulting provider notified?: Yes Primary care physician: Francheska Guerrero Hospital Course: Date of admission: 12-01-2017 Date of discharge: 12-03-2017 Admission diagnosis: Status post open right quadriceps tendon repair, medial and lateral retinacular repair Discharge diagnosis: Same Attending physician: Dr. Gonzales Surgical procedures: Open right quadriceps tendon repair, medial and lateral retinacular repair Brief history: Patient is a 62-year-old male who [facility] of a right knee injury after a fall. It was determined he had a quadriceps tendon tear. He was scheduled with Dr. Gonzales for surgery on 12/01/2017. Hospital course: Details of patient's surgery can be found in operative report. Patient tolerated the procedure well and was subsequently transported to orthopedic floor. Patient's orthopeidc and medical care was provided daily. Patient had daily laboratory tests performed for evaluation of overall blood counts. Patient had daily physical therapy to include strengthening range of motion as well as education with walker ambulation. Patient was treated with Lovenox and Coumadin for their postoperative DVT prophylaxis during their inpatient stay. Patient was noted to have a relatively uneventful postoperative course. Patient reported satisfactory pain control with oral pain medications by postoperative day 0. Patient showed satisfactory progress with physical therapy. Patient moved steadily through the program and had no difficulty meeting the goals by postoperative day 2. Given patient's otherwise satisfactory course and having met physical therapy goals, plan is to discharge patient home on postoperative day 2. Discharge condition/disposition: Patient will be discharged home in stable condition. Discharge medications: Instructions are given on resumption of patient's normal daily medications per primary care recommendation, in addition patient will be prescribed no new medications. Discharge instructions: 1. Wound care and infection precautions, keep incision dry and covered while showering, no lotions, creams, moisturizers. No soaking, tubs, pools, hottubs. Do not scrub over the incision. 2. Toe-touch weightbearing, utilize crutches or walker when ambulating. Utilize a knee immobilizer brace 3. Ice and elevate when necessary. Do not exceed 20 minutes per hour with ice pack. 4. Utilize compression sleeve until seen at first follow up appointment. 5. Visiting nursing care. 6. Pain meds and anticoagulants per prescription. 7. Pain medication has potential to cause constipation. Increase oral fluid and fiber intake. Contact primary care provider if you have not had a bowel movement within 48 hours after discharge 8. No anti-inflammatory medication until discussed at first post operative visit, this including Motrin, Aleve, Mobic, Diclofenac. 9. Follow up in office at 2 weeks postop with Quentin Randolph PA-C 10. Follow up with your primary care doctor 7-10 days after discharge. 11. Contact [facility] with any questions, . Procedures: [Open right quadriceps tendon repair, medial and lateral retinacular repair Patient Condition at Discharge: Good Plan - Discharge Summary Discharge Rx Participant: Yes New Discharge Prescriptions: New Hydrocodone/Acetaminophen [Burdette 5-325] 1 - 2 each PO Q6HR PRN #40 tab PRN Reason: Pain No Action metFORMIN HCL 1,000 mg PO BID Ezetimibe [Zetia] 10 mg PO DAILY Losartan [Cozaar] 50 mg PO DAILY #30 tab Warfarin [Coumadin] 5 mg PO SUTUTHSA Warfarin Sodium [Coumadin] 2.5 mg PO MOWEFR Insulin Glulisine (For Pump) [Apidra (For Pump)] 0.01 units SQ-PUMP CONTINUOUS Rosuvastatin [Crestor] 10 mg PO DAILY Metoprolol Succinate [Toprol XL] 200 mg PO BID Tamsulosin [Flomax] 0.4 mg PO DAILY Ibuprofen [Motrin] 600 mg PO Q6HR PRN PRN Reason: Pain Aspirin [Adult Low Dose Aspirin EC] 81 mg PO DAILY Discharge Medication List Ezetimibe [Zetia] 10 mg PO DAILY 01/15/15 [History] metFORMIN HCL 1,000 mg PO BID 01/15/15 [History] Losartan [Cozaar] 50 mg PO DAILY #30 tab 06/06/16 [Rx] Insulin Glulisine (For Pump) [Apidra (For Pump)] 0.01 units SQ-PUMP CONTINUOUS 04/05/17 [History] Rosuvastatin [Crestor] 10 mg PO DAILY 04/05/17 [History] Warfarin Sodium [Coumadin] 2.5 mg PO MOWEFR 04/05/17 [History] Warfarin [Coumadin] 5 mg PO SUTUTHSA 04/05/17 [History] Metoprolol Succinate [Toprol XL] 200 mg PO BID 11/19/17 [History] Tamsulosin [Flomax] 0.4 mg PO DAILY 11/19/17 [History] Aspirin [Adult Low Dose Aspirin EC] 81 mg PO DAILY 12/01/17 [History] Ibuprofen [Motrin] 600 mg PO Q6HR PRN 12/01/17 [History] Hydrocodone/Acetaminophen [Burdette 5-325] 1 - 2 each PO Q6HR PRN #40 tab 12/03/17 [Rx] Follow up Appointment(s)/Referral(s): [facility], [NON-STAFF] - Luis Randolph PAC [PHYSICIAN [employer]OTHING PATTERN[employer]ER] - 2 Weeks Activity/Diet/Wound Care/Special Instructions: Discharge instructions: 1. Wound care and infection precautions, keep incision dry and covered while showering, no lotions, creams, moisturizers. No soaking, tubs, pools, hottubs. Do not scrub over the incision. 2. Utilize a hinged knee brace at all times, toe-touch weightbearing with walker 3. Ice and elevate when necessary. Do not exceed 20 minutes per hour with ice pack. 4. Utilize compression sleeve until seen at first follow up appointment. 5. Visiting nursing care 6. Pain meds and anticoagulants per prescription. 7. Pain medication has potential to cause constipation. Increase oral fluid and fiber intake. Contact primary care provider if you have not had a bowel movement within 48 hours after discharge 8. No anti-inflammatory medication until discussed at first post operative visit, this including Motrin, Aleve, Mobic, Diclofenac. 9. Follow up in office at 2 weeks postop with Quentin Randolph PA-C 10. Follow up with your primary care doctor 7-10 days after discharge. 11. Contact [facility] with any questions, . Discharge Disposition: HOME WITH HOME HEALTH SERVICES
--- NOTE | 2017-12-03 10:02 | P.PN ---
Subjective Progress Note Date: 12/03/17 Principal diagnosis: Status post open left quadriceps tendon repair and medial and lateral retinacular repair Patient seen today resting in his hospital bed, he appears comfortable. His pain is controlled. He is ambulated well with therapy. He is utilizing the knee brace at this time. He denies any headaches, lightheadedness, chest pain or shortness of breath. Objective - Vital Signs Vital signs: Vital Signs Temp 97.7 F 12/03/17 07:00 Pulse 82 12/03/17 07:00 Resp 16 12/03/17 07:00 BP 148/93 12/03/17 07:00 Pulse Ox 92 L 12/03/17 07:00 Intake & Output 12/02/17 12/03/17 12/03/17 18:59 06:59 18:59 Intake Total 500 0 150 Output Total 425 Balance 500 -425 150 Intake: Intake, IV Titration 0 Amount Lactated Ringers 1,000 ml 0 @ 50 mls/hr IV .Q20H [facility] Rx#:[id number] Oral 500 150 Output: Urine 425 Other: Voiding Method Urinal Urinal Toilet Urinal # Voids 1 - Exam Left lower extremity: Postop brace and bandage are in good position. Plantar flexion and dorsiflexion are intact. Dorsal pedis pulses 2+. Sensory exam to light touch is intact. - Labs CBC & Chem 7: 12/02/17 06:17 12/02/17 06:17 Labs: Abnormal Lab Results - Last 24 Hours (Table) 12/02/17 12/02/17 12/02/17 Range/Units 06:17 11:41 16:43 POC Glucose (mg/dL) 170 H 123 H (75-99) mg/dL Hemoglobin A1c 8.0 H (4.0-6.0) % 12/03/17 Range/Units 07:10 POC Glucose (mg/dL) 102 H (75-99) mg/dL Hemoglobin A1c (4.0-6.0) % Assessment and Plan Plan: Assessment: 1. Postop day #2 status post open left quadriceps tendon repair, medial and lateral retinacular repair Plan: 1. Pain control, continue use of oral medication 2. Continue use of hinge knee brace locked in full extension 3. Ice and elevate 4. GI and DVT prophylaxis, resume Coumadin schedule 5. Medical recommendations 6. Toe-touch weightbearing with walker 7. Discharge planning: Discharged home today Time with Patient: Less than 30
[2017-12-03 10:59] LABS: INR 1.5 (<1.2)
[2017-12-03 11:12] LABS: Glucose,Whole Blood 200 mg/dL (75-99)
[2017-12-03 16:29] VITALS: BP 148/93; PULSE 82; TEMP 97.7
[2017-12-03] MEDS ORDERED: WARFARIN 7.5 MG TAB PO ONE (18:00)
--- NOTE | 2017-12-03 22:24 | PN ---
PROGRESS NOTE DATE OF SERVICE: 12/03/2017 This 62-year-old gentleman who was admitted after repair of the right quadriceps tendon is improving significantly. No chest pain. No palpitations. No fever. EXAM: Alert and oriented x3. Pulse is 82, blood pressure 149/68, respiration 16, temperature 97.7, pulse ox 98% on room air. HEENT: Conjunctivae normal. Neck: No jugular venous distention. Cardiovascular: S1, S2 muffled. Respiratory: Breath sounds diminished in the bases. No rhonchi and no crackles. Abdomen soft. Legs: Status post. Central nervous system: No focal deficits. LABS: Accu-Cheks 102, 200 and INR is 1.5. ASSESSMENT: 1. Status post repair of the right quadriceps tendon rupture. 2. Diabetes type 2. 3. Atrial fibrillation. 4. Coumadin monitoring. 5. Hypertension. 6. Hyperlipidemia. 7. History of myocardial infarction. 8. History of degenerative joint disease. 9. History of cardiac ablation. 10.History of CAD stent. RECOMMENDATIONS AND DISCUSSION: Recommend to continue current management and symptomatic treatment. I will resume the home dose of Coumadin. Monitor PT/INR closely. CBC, BMP, PT and INR next week. The rest of the recommendations per Orthopedic surgery. Monitor blood sugars closely. Further recommendations to follow. MMODL / IJN: [id number] / SHANE
== END 2017-12-03 14:00 | disposition home health service (06) ==
LOC: OR 09:07 → 3SUR 12:10 → OR 12-03 14:00
PROVIDERS: ATTEND Orthopaedic Surgery
DX: S76.111A Strain of right quadriceps muscle, fascia and tendon, initial encounter (principal); W00.0XXA Fall on same level due to ice and snow, initial encounter; M17.11 Unilateral primary osteoarthritis, right knee; I48.91 Unspecified atrial fibrillation; E11.9 Type 2 diabetes mellitus without complications; E78.00 Pure hypercholesterolemia, unspecified; I10 Essential (primary) hypertension; I73.9 Peripheral vascular disease, unspecified; I25.10 Atherosclerotic heart disease of native coronary artery without angina pectoris; Z95.5 Presence of coronary angioplasty implant and graft; I25.2 Old myocardial infarction; Z96.41 Presence of insulin pump (external) (internal); Z79.01 Long term (current) use of anticoagulants; Z79.84 Long term (current) use of oral hypoglycemic drugs; Z79.4 Long term (current) use of insulin; Z79.899 Other long term (current) drug therapy; Z88.8 Allergy status to other drugs, medicaments and biological substances; Z80.9 Family history of malignant neoplasm, unspecified; Z87.891 Personal history of nicotine dependence
CPT/HCPCS: 94760; 97161; 80048; 85025; 85610 ×3; 83036; 73560; 27385; J1100; J0690 ×4; J2405; J2001; J3010; J1650 ×3; J2370; J2704; J1170

== ENCOUNTER → 2018-06-09 | Outpatient (CLI) | payer MEDICARE ==
--- NOTE | 2018-06-09 16:42 | XR ---
EXAMINATION TYPE: XR chest 2V DATE OF EXAM: 06/09/2018 COMPARISON: Prior chest x-ray April 05, 2017. HISTORY: Bronchospasm per order. Recent shortness of breath per patient TECHNIQUE: Frontal and lateral views of the chest are obtained. FINDINGS: There is chronic parenchymal change with new small right pleural effusion. There is no acharya spicious focal airspace opacity or pneumothorax seen bilaterally. The cardiac silhouette size is uppe r limits of normal and stable with atherosclerotic change in aortic knob. There is multilevel spurrin g in the thoracic spine present. Suspect old right lateral rib fractures or focal pleural thickening midlung level. IMPRESSION: Chronic changes with small right pleural effusion.
== END | disposition home or self-care (01) ==
LOC: RADXRYALE 16:29
PROVIDERS: ATTEND Internal Medicine
DX: J90 Pleural effusion, not elsewhere classified (principal)
CPT/HCPCS: 71046

== ENCOUNTER 2018-06-24 07:11 | Day surgery (SDC) | payer MEDICARE ==
[2018-06-18 11:16] VITALS: BMI 34.2
[2018-06-24 08:00] LABS: Glucose,Whole Blood 154 mg/dL (75-99)
[2018-06-24 08:01] LABS: INR 3.3 (<1.2); Prothrombin Time 29.2 sec (9.0-12.0)
[2018-06-24] MEDS ORDERED: HEPARIN SODIUM 1,000 UN/ML (10ML VL) ONE (08:04)
[2018-06-24] MEDS: SODIUM CHLORIDE 0.9% 1,000 ML IV SCH (08:05)
[2018-06-24] MEDS ORDERED: MIDAZOLAM 2 MG/2 ML VIAL ONE (08:15)
[2018-06-24] MEDS ORDERED: PROPOFOL 10 MG/ML 20 ML VIAL IV ONE (08:15)
[2018-06-24] MEDS ORDERED: fentaNYL (PF) 50 MCG/ML 2 ML AMP ONE (08:15)
[2018-06-24] MEDS ORDERED: ePHEDrine SULFATE/0.9% NACL/PF 50 MG/5 ML SYRINGE IV ONE (08:15)
[2018-06-24] MEDS ORDERED: ISOPROTERENOL 250 MCG/1.25 ML SYR IV ONE (08:15)
[2018-06-24 08:51] LABS: Calcium 9.2 mg/dL (8.4-10.2); Potassium 4.7 mmol/L (3.5-5.1)
[2018-06-24] MEDS ORDERED: LIDOCAINE 1% INJ 10MG/ML (20 ML MDV) SQ ONE (08:57)
[2018-06-24] MEDS ORDERED: LIDOCAINE 1% INJ 10MG/ML (20 ML MDV) ONE (08:59)
[2018-06-24 09:25] LABS: Glucose,Whole Blood 120 mg/dL (75-99)
[2018-06-24] MEDS ORDERED: HEPARIN SOD,PORK IN 0.45% NACL 25,000 UNIT in 0.45% NACL 1 500ML.BAG IV ONE (09:35)
[2018-06-24] MEDS ORDERED: HEPARIN SODIUM (1,000 UNIT/ML) 1,000 UNIT in SODIUM CHLORIDE 0.9% 1,000 ML IRRIGATION ONE (09:45)
[2018-06-24 10:32] LABS: Glucose,Whole Blood 121 mg/dL (75-99)
[2018-06-24] MEDS ORDERED: LACTATED RINGERS 1,000 ML IV ONE (11:45)
[2018-06-24] MEDS ORDERED: HYDROcodone/APAP 5-325MG 1 EACH TAB PO PRN (11:58)
[2018-06-24] MEDS ORDERED: ACETAMINOPHEN TAB 325 MG TAB PO PRN (11:58)
[2018-06-24] MEDS ORDERED: Insulin Glulisine (For Pump) 100 UNIT/ML VIAL SQ-PUMP SCH (12:00)
[2018-06-24 12:13] LABS: Glucose,Whole Blood 120 mg/dL (75-99)
[2018-06-24] MEDS ORDERED: ACETAMINOPHEN IV (For NPO) 1,000 MG in EMPTY BAG 1 BAG IVPB ONE (12:30)
[2018-06-24 12:57] LABS: Glucose,Whole Blood 127 mg/dL (75-99)
--- NOTE | 2018-06-24 14:05 | CE ---
CARDIAC ELECTROPHYSIOLOGY REPORT Jose Alfaro is a 62-year-old male patient, history of atrial fibrillation, zone 1 atrial fibrillation ablation with PVI mm ablation, atrial flutter ablation in the past who had recurrent atrial tachycardia with RVR that was difficult to rate control. He is brought in for an EP study and radiofrequency ablation. Patient is brought to the EP lab in a fasting state. Written informed consent was obtained prior to the procedure. The procedure was performed under conscious sedation. The right and left groins were prepped and draped as per protocol. Venous sheaths were placed in the right and left femoral veins and a 5-[place] arterial line was placed in the right femoral artery with his blood pressure was in the mid 80s with conscious sedation. He remained stable through the rest of the procedure. Hemodynamic sampling was performed to maintain HCT above 300 through this line. Diagnostic catheters, and ablation catheter, and intracardiac ultrasound catheters were placed. A PentaRay catheter was used and mapping ablation catheter was used. Coronary sinus catheter was used and an pacing was performed from the high right atrium and an from the right ventricle and mapping of the HIS bundle and HV interval was performed. Atrial tachycardia cycle length was 226 milliseconds, QRS 99 milliseconds in sinus rhythm. His heart rate is normal, AH interval 56, HV interval 56 once he was in sinus rhythm. Intracardiac echocardiography was performed. Right and left atrial maps were made. A 3D mapping was performed. Transseptal catheterization was performed, RA pressure 18 x 7 x 13 and LA pressure 28 x 1 x 20 mmHg. A PentaRay catheter was used to map the left atrium. The patient was in a tachycardia with upright P-waves in V1 and upright in the inferior leads and negatively oriented atrial flexions in lead 1. A detailed activation map was performed and ripple mapping was employed. It appeared that there was an breakthrough in the mid anterior roof where the previous roof line had been made. A scar map also confirmed gap in the line. RF ablation was performed in the anterior aspect of the roof along the previous line and there was slowly the atrial tachycardia cycle length progressively lengthened and then abruptly terminated and line was complete. A complete anatomic line was made and interrogated with 100% grid, high output pacing was performed and there was no gaps left in the line and there was none capture along the line. Split potentials of 130 milliseconds were noted in sinus rhythm along the line. Following that, the pulmonary veins were interrogated. It appeared that left superior pulmonary vein had conduction along the anterior inferior aspect only and RF ablation was then performed to complete isolation of the left superior and pulmonary vein and its bonilla. RF ablation was applied along the previous anterior line in the ridge area. Following this, the left superior pulmonary vein was interrogated and non capture was noted within the vein as well as entrance block was noted. The left inferior vein was quiescent and the right-sided veins were quiescent. Following that, high-dose Isuprel was used in sinus rhythm. Atrial extrastimulation was performed from multiple sites up to triple extrastimuli. No atrial fibrillation. No atrial tachycardia was induced. Isuprel was stopped. VA Wenckebach block 550 milliseconds. AV node Wenckebach block from the high right atrium 350 milliseconds. Intracardiac echocardiography at the end of the procedure revealed normal LV size and systolic function. No pericardial effusion. All catheters were then removed and patient was transferred back to observation telemetry. RESULT: 1. Successful ablation of an atrial tachycardia in the roof with termination of the tachycardia during ablation and non-inducibility thereafter. 2. Pulmonary vein isolation, left superior pulmonary vein anteriorly along the ridge. All other veins were quiescent. Patient tolerated the procedure well without any acute complications. MMODL / IJN: [id number] /
[2018-06-24 17:34] LABS: Glucose,Whole Blood 183 mg/dL (75-99)
[2018-06-24] MEDS ORDERED: WARFARIN 5 MG TAB PO SCH (18:00)
[2018-06-24] MEDS: metFORMIN 500 MG TAB PO SCH (18:27)
[2018-06-24] MEDS: METOPROLOL SUCCINATE (ER) 100 MG TAB.ER.24H PO SCH (20:39)
[2018-06-24 21:48] LABS: Glucose,Whole Blood 162 mg/dL (75-99)
[2018-06-25] MEDS: SODIUM CHLORIDE 0.9% 1,000 ML IV SCH (02:10)
[2018-06-25 07:18] LABS: INR 3.4 (<1.2); Prothrombin Time 30.2 sec (9.0-12.0)
[2018-06-25 07:20] LABS: Glucose,Whole Blood 69 mg/dL (75-99)
[2018-06-25 07:21] LABS: Glucose,Whole Blood 71 mg/dL (75-99)
--- NOTE | 2018-06-25 08:10 | P.DS ---
Providers Attending physician: Zeferino Briceño Primary care physician: Francheska Guerrero [facility] Course: Patient is doing well. He denies any chest discomfort dizziness lightheadedness or palpitations. He sitting up comfortably in bed eating breakfast. He's been ablating in the hallways. His grandson healed well Afebrile 97.63 Fahrenheit pulse rate in the 60s blood pressure 116/65 mmHg Breath sounds are clear no rhonchi no crackles Heart sounds S1 and S2 are normal no murmurs no gallops no rub Abdomen is soft nontender Extended is warm no edema Groins of healed well without hematoma Impression Persistent symptomatic atrial tachycardia with RVR with difficult rate control History of persistent atrial fibrillation status post pulmonary vein isolation and linear ablation Plan Discharge home today with a reduced dose of metoprolol 200 mg by mouth daily, continue anticoagulation and follow-up in 1-2 weeks no other changes in medications Patient Condition at Discharge: Stable Plan - Discharge Summary Discharge Rx Participant: No New Discharge Prescriptions: New Metoprolol Succinate [Toprol XL] 200 mg PO DAILY #90 tab.er.24h Discontinued Metoprolol Succinate [Toprol XL] 200 mg PO BID No Action metFORMIN HCL 1,000 mg PO BID Ezetimibe [Zetia] 10 mg PO DAILY Losartan [Cozaar] 50 mg PO DAILY #30 tab Warfarin [Coumadin] 5 mg PO SUTUTHSA Warfarin Sodium [Coumadin] 2.5 mg PO MOWEFR Insulin Glulisine (For Pump) [Apidra (For Pump)] 0.01 units SQ-PUMP CONTINUOUS Rosuvastatin [Crestor] 10 mg PO DAILY Aspirin [Adult Low Dose Aspirin EC] 81 mg PO DAILY Pioglitazone [Actos] 30 mg PO DAILY Discharge Medication List Ezetimibe [Zetia] 10 mg PO DAILY 01/15/15 [History] metFORMIN HCL 1,000 mg PO BID 01/15/15 [History] Losartan [Cozaar] 50 mg PO DAILY #30 tab 06/06/16 [Rx] Insulin Glulisine (For Pump) [Apidra (For Pump)] 0.01 units SQ-PUMP CONTINUOUS 04/05/17 [History] Rosuvastatin [Crestor] 10 mg PO DAILY 04/05/17 [History] Warfarin Sodium [Coumadin] 2.5 mg PO MOWEFR 04/05/17 [History] Warfarin [Coumadin] 5 mg PO SUTUTHSA 04/05/17 [History] Aspirin [Adult Low Dose Aspirin EC] 81 mg PO DAILY 12/01/17 [History] Pioglitazone [Actos] 30 mg PO DAILY 06/18/18 [History] Metoprolol Succinate [Toprol XL] 200 mg PO DAILY #90 tab.er.24h 06/24/18 [Rx] Follow up Appointment(s)/Referral(s): Zeferino Briceño MD [STAFF PHYSICIAN] - 2 Weeks (Follow-up with Dr. Fernandez for a groin check in 1-2 weeks post ablation) Activity/Diet/Wound Care/Special Instructions: Post EP study - Ablation instructions 1. Keep access sites dry for 2 days. 2. No heavy lifting or straining for 2 days. 3. Avoid bending the hips repeatedly for 2 days. 4. You may go up and down stairs slowly Call if the following is noted 1. Bleeding, increasing swelling or pain at the access sites. 2. Increasing chest discomfort, especially upon taking a deep breath. 3. Increasing shortness of breath, at rest or with exertion. 4. Undue cough / phlegm 5. Difficulty or pain while swallowing. 6. Pain or change in color in the extremities. 7. Fever, chills, rigors. 8. Increasing headache or neurologic symptoms. 9. Dizziness, fainting, palpitations Discharge Disposition: HOME SELF-CARE
[2018-06-25] MEDS: metFORMIN 500 MG TAB PO SCH (08:15)
[2018-06-25] MEDS: METOPROLOL SUCCINATE (ER) 100 MG TAB.ER.24H PO SCH (08:15)
[2018-06-25] MEDS ORDERED: EZETIMIBE 10 MG TAB PO SCH (09:00)
[2018-06-25] MEDS ORDERED: PIOGLITAZONE 30 MG TAB PO SCH (09:00)
[2018-06-25] MEDS ORDERED: LOSARTAN 50 MG TAB PO SCH (09:00)
[2018-06-25] MEDS ORDERED: ATORVASTATIN 10 MG TAB PO SCH (09:00)
[2018-06-25] MEDS ORDERED: ASPIRIN 81 MG PO SCH (09:00)
[2018-06-25 09:10] VITALS: RESP 16
[2018-06-25] MEDS ORDERED: INSULIN PUMP BASAL RATES 1 EACH MISC MISCELLANE PRN (10:08)
[2018-06-25] MEDS ORDERED: INSPUCOR MISCELLANE PRN (10:08)
[2018-06-25] MEDS ORDERED: INSULIN PUMP ACTIVE INSULIN 1 EACH MISC MISCELLANE PRN (10:08)
[2018-06-25] MEDS ORDERED: INSULIN PUMP TARGET GLUCOSE 1 EACH MISC MISCELLANE PRN (10:08)
[2018-06-25] MEDS ORDERED: INSULIN ASPART 100 UNIT/ML 1 ML 10 ML VIAL SQ PRN (10:08)
[2018-06-25 12:06] VITALS: BP 126/80; PULSE 63; TEMP 98.3
[2018-06-25 12:11] LABS: Glucose,Whole Blood 144 mg/dL (75-99)
[2018-06-25] MEDS ORDERED: INSULIN PUMP MEAL BOLUS 1 UNIT MISC MISCELLANE SCH (12:30)
[2018-06-25 16:56] LABS: Hemoglobin A1C 8.1 % (4.0-6.0)
[2018-06-25] MEDS ORDERED: WARFARIN 2.5 MG TAB PO SCH (18:00)
== END 2018-06-25 12:59 | disposition home or self-care (01) ==
LOC: CATHEP 07:11 → 3OBS 11:51 → CATHEP 06-25 12:59
PROVIDERS: ATTEND Internal Medicine Clinical Cardiac Electrophysiology
DX: I47.1 Supraventricular tachycardia (principal); I48.1 Persistent atrial fibrillation; I25.10 Atherosclerotic heart disease of native coronary artery without angina pectoris; E11.9 Type 2 diabetes mellitus without complications; I10 Essential (primary) hypertension; E78.5 Hyperlipidemia, unspecified; I25.2 Old myocardial infarction; F17.210 Nicotine dependence, cigarettes, uncomplicated; Z95.5 Presence of coronary angioplasty implant and graft; Z79.01 Long term (current) use of anticoagulants; Z79.82 Long term (current) use of aspirin; Z79.4 Long term (current) use of insulin; Z79.899 Other long term (current) drug therapy; Z96.41 Presence of insulin pump (external) (internal); Z82.49 Family history of ischemic heart disease and other diseases of the circulatory system; Z88.8 Allergy status to other drugs, medicaments and biological substances
CPT/HCPCS: 85347; 93623; 93662; 93613; 93656; 80048; 85610 ×2; 83036; C1769 ×5; C1894 ×2; C1730; C1731; C1759; C1893; C1732; J2250; J2001; J1644 ×2; J3010; J2704

== ENCOUNTER → 2018-07-01 | Outpatient (CLI) | payer MEDICARE ==
--- NOTE | 2018-07-01 09:21 | CT ---
EXAMINATION TYPE: CT chest w con DATE OF EXAM: 07/01/2018 COMPARISON: 07/17/2010 an correlation radiographs 06/09/2018. HISTORY: 62-year-old male Fluid on lungs, pleural effusion. TECHNIQUE: Contiguous axial scanning of the chest after the administration of 80 mL of Isovue 300. C oronal/sagittal reconstructions performed. CT DLP: 697.5mGycm. Automatic exposure control utilized for a dose reduction. FINDINGS: Heart is normal size without pericardial effusion. Extensive coronary vessel calcifications are prese nt. Aorta normal caliber with bovine configuration to the aortic arch and mild atherosclerotic calcificat ions. Nonenlarged and borderline to mildly enlarged mediastinal lymph nodes have increased from 2009 measur ing up to 1.1 cm AP window and 1.0 cm lower right paratracheal region. An additional rounded nodule p araesophageal level below the inferior left pulmonary vein measures 2.0 cm. Small hiatal hernia and some lobulated mural-based thickening. Either neoplasm or mucosal redundancy are present here. Very mild centrilobular emphysema. Calcified granuloma left apex. Mild diffuse bronchial wall thicken ing. 5 mm smaller nodularity along the minor fissure, axial image 32 and 33 is unchanged from 2010 co mpatible with a benign etiology. Small right and left pleural effusions with prominent adjacent atelectasis in the dependent portions of the lower lobes.. Visualized upper abdomen shows some nonspecific calcifications in the pancreatic head region, partial ly visualized. A calcified granuloma in the spleen. Bones: Endplate spondylosis greatest in the mid to lower thoracic spine. IMPRESSION: 1. Small right greater than left pleural effusions with prominent adjacent dependent lower lobe atele ctasis. 2. Nonenlarged and borderline to mildly enlarged mediastinal lymph nodes have increased from 2009 and measure up to 1.1 cm. A left paraesophageal lymph node measures 2.0 cm. Atypical fungal/mycobacteria l infections, sarcoid, and metastatic disease are some of the differential considerations. Three-laquita h follow-up recommended. 3. Small hiatal hernia with some mural based nodularity at the GE junction. This could reflect mucosa l redundancy or neoplasm. Direct visualization can further evaluate. 4. COPD with mild emphysema.
== END | disposition home or self-care (01) ==
LOC: RADCTMAIN 07:39
PROVIDERS: ATTEND Internal Medicine
DX: J90 Pleural effusion, not elsewhere classified (principal); J98.11 Atelectasis; J43.9 Emphysema, unspecified; K44.9 Diaphragmatic hernia without obstruction or gangrene; R59.0 Localized enlarged lymph nodes
CPT/HCPCS: 82565; 84520; 71260; 36415; Q9967

== ENCOUNTER → 2018-12-13 | Outpatient (CLI) | payer MEDICARE ==
--- NOTE | 2018-12-13 12:22 | CT ---
EXAMINATION TYPE: CT chest w con DATE OF EXAM: 12/13/2018 COMPARISON: 07/01/2018 and 07/17/2010 HISTORY: 63-year-old male localized enlarged lymph nodes, Follow up to prior abnormal CT TECHNIQUE: Contiguous axial scanning of the chest after the administration of 100 mL of Isovue 300. Coronal/sagittal reconstructions performed. CT DLP: 563.6mGycm. Automatic exposure control utilized for a dose reduction. FINDINGS: Heart normal size without pericardial effusion. Coronary vessel calcifications are present. Mild atherosclerotic arch calcifications with bovine configuration to the aortic arch. Redemonstrated nonenlarged and prominent mediastinal lymph nodes. These currently measure 9 mm precar inal level versus 1.0 cm, previously. 8 mm AP window versus 1.1 cm, previously. 1.2 cm right hilar, u nchanged. 9 mm left hilar, unchanged. 1.9 cm lower left paraesophageal versus 2.0 cm, previously. No progressive lymphadenopathy is identified. Small hiatal hernia. Visualized upper abdomen shows nonspecific focal calcifications at the pancreati c head region. Scattered small calcified granulomas. Additional nodularity measuring up to 5 mm along the minor fiss ure remains unchanged from 2010. No new pulmonary nodules, consolidation, or pleural effusion is seen . Bones: Endplate spondylosis mid to lower thoracic spine. No osseous destructive process. IMPRESSION: 1. Some prominent mediastinal lymph nodes are either stable or smaller from 5 months previous. The la rgest lymph node measures 1.9 cm in the lower left paraesophageal region versus 2.0 cm, previously. G iven the abnormal size here, additional six-month follow-up is recommended as a precautionary measure . 2. Small hiatal hernia.
== END ==
LOC: RADCTMAIN 10:42
PROVIDERS: ATTEND Internal Medicine Sleep Medicine
DX: R59.0 Localized enlarged lymph nodes (principal)
CPT/HCPCS: 82565; 84520; 71260; 36415; Q9967

== ENCOUNTER → 2019-07-18 | Outpatient (CLI) | payer MEDICARE ==
--- NOTE | 2019-07-18 10:55 | CT ---
EXAMINATION TYPE: CT chest w con DATE OF EXAM: 07/18/2019 COMPARISON: 12/13/2018 HISTORY: Enlarged lymph nodes CT DLP: 660 mGycm, Automated exposure control for dose reduction was used. CONTRAST: Performed injected with 80 mL of Isovue 300. TECHNIQUE: Axial images were obtained at 5 mm thick sections. Reconstructed images are reviewed on [employer] computer in the coronal plane. FINDINGS: Portion of the thyroid visualized is normal. There is a cyst 0.4 similar calcification at the left apex may be a granuloma. Couple of punctate per ipheral nodules in the right middle lobe, series 3 image 33. Small right pleural effusion is present. There is a 1.0 cm lymph node adjacent to the level of the aortic arch. Enlarged pretracheal lymph no de measuring 1.3 cm is present. A 1.0 right suprahilar lymph node is present. Findings appear similar to prior study. Shotty lymph nodes are present within the mediastinum. The ascending aorta diameter at the level of the main pulmonary artery is 3.7 cm. The main pulmonary artery diameter at the bifurcation is 3.2 cm. Coronary artery calcification is present. Limited CT sections are obtained through the upper abdomen. Abdomen is essentially unremarkable. IMPRESSIONS: 1. There are some scattered enlarged lymph nodes within the pretracheal space, adjacent to the latera l aortic arch, and in the right suprahilar region. These have slightly enlarged from the comparison. 2. Small right pleural effusion
== END | disposition home or self-care (01) ==
LOC: RADCTMAIN 09:22
PROVIDERS: ATTEND Internal Medicine Critical Care Medicine
DX: J90 Pleural effusion, not elsewhere classified (principal)
CPT/HCPCS: 82565; 84520; 71260; 36415; Q9967

== ENCOUNTER 2020-12-04 15:42 | Observation (INO) | payer MEDICARE ==
[2020-12-04] MEDS ORDERED: SODIUM CHLORIDE 0.9% 500 ML 500 ML IV STA (16:22)
[2020-12-04] MEDS ORDERED: FAMOTIDINE 20 MG/2 ML VIAL IV STA (16:23)
[2020-12-04] MEDS ORDERED: MAG HYDROX/AL HYDROX/SIMETH 30 ML, HYOSCYAMINE ELIXIR 10 ML, LIDOCAINE VISCOUS 2% 10 ML PO STA ×3 (16:23)
[2020-12-04 16:52] LABS: Basophils # (A) 0.1 k/uL (0-0.2); Basophils % (A) 1 %; Eosinophils # (A) 0.1 k/uL (0-0.7); Eosinophils % (A) 2 %; HCT 46.1 % (39.0-53.0); Lymphocytes # (A) 1.2 k/uL (1.0-4.8); Lymphocytes % (A) 14 %; MCH 28.7 pg (25.0-35.0); MCHC 32.5 g/dL (31.0-37.0); MCV 88.3 fL (80.0-100.0); Mean Platelet Volume 7.5; Monocytes # (A) 0.5 k/uL (0-1.0); Monocytes % (A) 6 %; Neutrophils # (A) 6.8 k/uL (1.3-7.7); Neutrophils % (A) 77 %; Platelet Count 183 k/uL (150-450); RBC 5.22 m/uL (4.30-5.90); RDW 14.5 % (11.5-15.5); WBC 8.8 k/uL (3.8-10.6)
[2020-12-04 17:01] LABS: INR 2.8 (<1.2); Partial Thromboplastin Time 33.1 sec (22.0-30.0); Prothrombin Time 27.2 sec (9.0-12.0)
--- NOTE | 2020-12-04 17:02 | ED ---
General Adult HPI - General Chief complaint: Nausea/Vomiting/Diarrhea Stated complaint: Vomiting Time Seen by Provider: 12/04/20 16:01 Source: patient, RN notes reviewed Mode of arrival: ambulatory Limitations: no limitations - History of Present Illness Initial comments: 65-year-old male with a past medical history of atrial fibrillation, diabetes mellitus, hyperlipidemia, hypertension, [place] who sees Dr. Briceño presents to the emergency room for a chief complaint of heartburn. Patient has had heartburn for 3 or 4 days. He describes this as a burning starting in his epigastric area radiating to his chest. He states this worsens when he sits down or lays down to go to sleep at night. Denies this worsening on exertion. States he did vomit once this morning. He denies dull chest pain or pain radiating down his arms. He denies any shortness of breath.Patient has no other complaints at this time including shortness of breath, abdominal pain, headache, or visual changes. - Related Data Home Medications Medication Instructions Recorded Confirmed Ezetimibe [Zetia] 10 mg PO DAILY 01/15/15 12/04/20 metFORMIN HCL 1,000 mg PO BID 01/15/15 12/04/20 Warfarin Sodium [Coumadin] 2.5 mg PO SUMOWEFR 04/05/17 12/04/20 Warfarin [Coumadin] 5 mg PO TUTHSA 04/05/17 12/04/20 Pioglitazone [Actos] 30 mg PO DAILY 06/18/18 12/04/20 Ergocalciferol [Vitamin D2 50,000 unit PO FR 12/04/20 12/04/20 (DRISDOL)] Ferrous Sulfate [Iron (65 MG 325 mg PO DAILY 12/04/20 12/04/20 Elemental)] INSULIN LISPRO (For Pump) [humaLOG 0.01 units SQ-PUMP CONTINUOUS 12/04/20 12/04/20 (For Pump)] Metoprolol Succinate [Toprol XL] 50 mg PO DAILY 12/04/20 12/04/20 Rosuvastatin Calcium [Crestor] 20 mg PO DAILY 12/04/20 12/04/20 Semaglutide [Ozempic] 1 mg SQ TH 12/04/20 12/04/20 Tiotropium 2.5 Mcg/Puff [Spiriva 2 puff INHALATION RT-DAILY 12/04/20 12/04/20 Respimat 2.5 Mcg] Previous Rx's Medication Instructions Recorded Losartan [Cozaar] 50 mg PO DAILY #30 tab 06/06/16 Allergies Allergy/AdvReac Type Severity Reaction Status Date / Time ramipril [From Altace] Allergy Rash/Hives Verified 12/04/20 18:29 Review of Systems ROS Statement: Those systems with pertinent positive or pertinent negative responses have been documented in the HPI. ROS Other: All systems not noted in ROS Statement are negative. Past Medical History Past Medical History: Atrial Fibrillation, Diabetes Mellitus, Hyperlipidemia, Hypertension, Myocardial Infarction ([place]), Osteoarthritis (OA) Additional Past Medical History / Comment(s): SEE DR BRICEÑO H&P FOR CARDIAC HISTORY Last Myocardial Infarction Date:: 2011 History of Any Multi-Drug Resistant Organisms: None Reported Past Surgical History: Cardiac Ablation, Heart Catheterization With Stent Additional Past Surgical History / Comment(s): CYSTS REMOVED FROM TAILBONE AND BY RECTUM, RIGHT KNEE QUADRICEPT REPAIR Past Anesthesia/Blood Transfusion Reactions: No Reported Reaction Date of Last Stent Placement:: 2011 Past Psychological History: No Psychological Hx Reported Past Alcohol Use History: Occasional Past Drug Use History: None Reported - Past Family History Brother(s) History Unknown: Yes Sister(s) History Unknown: Yes Father Additional Family Medical History / Comment(s): smoked had yesya at age 40 Mother Family Medical History: Cancer, Congestive Heart Failure (CHF) Additional Family Medical History / Comment(s): rectal cancer General Exam Limitations: no limitations General appearance: alert, in no apparent distress Head exam: Present: atraumatic, normocephalic, normal inspection Eye exam: Present: normal appearance, PERRL, EOMI. Absent: scleral icterus, conjunctival injection, periorbital swelling ENT exam: Present: normal exam, mucous membranes moist Neck exam: Present: normal inspection, full ROM. Absent: tenderness, meningismus, lymphadenopathy Respiratory exam: Present: normal lung sounds bilaterally. Absent: respiratory distress, wheezes, rales, rhonchi, stridor Cardiovascular Exam: Present: regular rate, normal rhythm, normal heart sounds. Absent: systolic murmur, diastolic murmur, rubs, gallop, clicks GI/Abdominal exam: Present: soft, normal bowel sounds. Absent: distended, tenderness, guarding, rebound, rigid Neurological exam: Present: alert Course Vital Signs 12/04/20 15:44 Temperature 98.0 F Pulse Rate 74 Respiratory 18 Rate Blood Pressure 134/77 O2 Sat by Pulse 98 Oximetry EKG Findings - EKG Comments: EKG Findings:: Normal sinus rhythm, ventricular rate 70, FL interval 160, QTc 457 Medical Decision Making - Medical Decision Making Vitals are stable. CBC CMP unremarkable. Troponin negative. Chest x-ray shows no active cardiopulmonary disease. At this time given cardiac history of KS and 2 stents placed I discussed this case with Dr. Lopez who feels it would be best to admit patient for cardiac rule out. - Lab Data Result diagrams: 12/04/20 16:34 12/04/20 16:34 Lab Results 12/04/20 12/04/20 12/04/20 Range/Units 16:34 16:34 16:34 WBC 8.8 (3.8-10.6) k/uL RBC 5.22 (4.30-5.90) m/uL Hgb 15.0 (13.0-17.5) gm/dL Hct 46.1 (39.0-53.0) % MCV 88.3 (80.0-100.0) fL MCH 28.7 (25.0-35.0) pg MCHC 32.5 (31.0-37.0) g/dL RDW 14.5 (11.5-15.5) % Plt Count 183 (150-450) k/uL MPV 7.5 Neutrophils % 77 % Lymphocytes % 14 % Monocytes % 6 % Eosinophils % 2 % Basophils % 1 % Neutrophils # 6.8 (1.3-7.7) k/uL Lymphocytes # 1.2 (1.0-4.8) k/uL Monocytes # 0.5 (0-1.0) k/uL Eosinophils # 0.1 (0-0.7) k/uL Basophils # 0.1 (0-0.2) k/uL PT 27.2 H (9.0-12.0) sec INR 2.8 H (<1.2) APTT 33.1 H (22.0-30.0) sec Sodium 135 L (137-145) mmol/L Potassium 5.1 (3.5-5.1) mmol/L Chloride 103 (98-107) mmol/L Carbon Dioxide 27 (22-30) mmol/L Anion Gap 5 mmol/L BUN 20 (9-20) mg/dL Creatinine 1.31 H (0.66-1.25) mg/dL Est GFR (CKD-EPI)AfAm 66 (>60 ml/min/1.73 sqM) Est GFR (CKD-EPI)NonAf 57 (>60 ml/min/1.73 sqM) Glucose 277 H (74-99) mg/dL Calcium 9.2 (8.4-10.2) mg/dL Magnesium 1.7 (1.6-2.3) mg/dL Total Bilirubin 0.6 (0.2-1.3) mg/dL AST 28 (17-59) U/L ALT 23 (4-49) U/L Alkaline Phosphatase 63 (38-126) U/L Troponin I (0.000-0.034) ng/mL NT-Pro-B Natriuret Pep pg/mL Total Protein 6.7 (6.3-8.2) g/dL Albumin 3.6 (3.5-5.0) g/dL Amylase 42 (30-110) U/L Lipase 41 (23-300) U/L Coronavirus (PCR) (Not Detectd) 12/04/20 12/04/20 12/04/20 Range/Units 16:34 16:34 16:34 WBC (3.8-10.6) k/uL RBC (4.30-5.90) m/uL Hgb (13.0-17.5) gm/dL Hct (39.0-53.0) % MCV (80.0-100.0) fL MCH (25.0-35.0) pg MCHC (31.0-37.0) g/dL RDW (11.5-15.5) % Plt Count (150-450) k/uL MPV Neutrophils % % Lymphocytes % % Monocytes % % Eosinophils % % Basophils % % Neutrophils # (1.3-7.7) k/uL Lymphocytes # (1.0-4.8) k/uL Monocytes # (0-1.0) k/uL Eosinophils # (0-0.7) k/uL Basophils # (0-0.2) k/uL PT (9.0-12.0) sec INR (<1.2) APTT (22.0-30.0) sec Sodium (137-145) mmol/L Potassium (3.5-5.1) mmol/L Chloride (98-107) mmol/L Carbon Dioxide (22-30) mmol/L Anion Gap mmol/L BUN (9-20) mg/dL Creatinine (0.66-1.25) mg/dL Est GFR (CKD-EPI)AfAm (>60 ml/min/1.73 sqM) Est GFR (CKD-EPI)NonAf (>60 ml/min/1.73 sqM) Glucose (74-99) mg/dL Calcium (8.4-10.2) mg/dL Magnesium (1.6-2.3) mg/dL Total Bilirubin (0.2-1.3) mg/dL AST (17-59) U/L ALT (4-49) U/L Alkaline Phosphatase (38-126) U/L Troponin I <0.012 (0.000-0.034) ng/mL NT-Pro-B Natriuret Pep 251 pg/mL Total Protein (6.3-8.2) g/dL Albumin (3.5-5.0) g/dL Amylase (30-110) U/L Lipase (23-300) U/L Coronavirus (PCR) Not Detected (Not Detectd) Disposition Clinical Impression: Chest pain, Heart burn, A-fib Disposition: ADMITTED IP TO THIS [facility] Is patient prescribed a controlled substance at d/c from ED?: No Referrals: Francheska Guerrero MD [Primary Care Provider] - 1-2 days Time of Disposition: 18:44
--- NOTE | 2020-12-04 17:23 | XR ---
EXAMINATION TYPE: XR chest 2V DATE OF EXAM: 12/04/2020 COMPARISON: January 30, 2020 HISTORY: Chest pain TECHNIQUE: FINDINGS: Heart is normal. Lungs are clear of consolidation. There are no hilar masses. Bony thorax i s intact. There are chest leads. IMPRESSION: No active cardiopulmonary disease. Normal heart. No change.
[2020-12-04 17:44] LABS: Albumin 3.6 g/dL (3.5-5.0); Calcium 9.2 mg/dL (8.4-10.2); Magnesium 1.7 mg/dL (1.6-2.3); Potassium 5.1 mmol/L (3.5-5.1); Total Bilirubin 0.6 mg/dL (0.2-1.3); Total Protein 6.7 g/dL (6.3-8.2)
[2020-12-04] MEDS ORDERED: ASPIRIN 81 MG PO STA (18:44)
[2020-12-04 19:37] VITALS: RESP 16
[2020-12-04 23:02] LABS: Glucose,Whole Blood 149 mg/dL (75-99)
[2020-12-04] MEDS ORDERED: INSULIN LISPRO (For Pump) 100 UNIT/ML VIAL SQ-PUMP SCH (23:30)
[2020-12-04] MEDS ORDERED: ACETAMINOPHEN TAB 325 MG TAB PO PRN (23:32)
[2020-12-04] MEDS ORDERED: WARFARIN 5 MG TAB PO ONE (23:45)
[2020-12-05 06:18] LABS: Glucose,Whole Blood 173 mg/dL (75-99)
[2020-12-05] MEDS: IPRATROPIUM 0.5 MG/2.5 ML NEBU INHALATION SCH ×2 (07:39→11:23)
[2020-12-05 07:58] LABS: Cholesterol 123 mg/dL (<200); HDL Cholesterol 41 mg/dL (40-60); LDL Cholesterol,Calculated 65 mg/dL (0-99); Triglycerides 83 mg/dL (<150)
[2020-12-05] MEDS ORDERED: CAFFEINE CITRATE 60 MG/3 ML VIAL IV PRN (08:44)
[2020-12-05] MEDS ORDERED: REGADENOSON 0.4 MG/5 ML SYRINGE IV PRN (08:44)
[2020-12-05] MEDS ORDERED: AMINOPHYLLINE 500 MG/20 ML VIAL IV PRN (08:44)
[2020-12-05] MEDS ORDERED: ATORVASTATIN 40 MG TAB PO SCH (09:00)
[2020-12-05] MEDS ORDERED: EZETIMIBE 10 MG TAB PO SCH (09:00)
[2020-12-05] MEDS ORDERED: LOSARTAN 50 MG TAB PO SCH (09:00)
[2020-12-05] MEDS ORDERED: METOPROLOL SUCCINATE (ER) 50 MG TAB.ER.24H PO SCH (09:00)
[2020-12-05] MEDS ORDERED: PANTOPRAZOLE 40 MG/10 ML VIAL IVP SCH (09:00)
[2020-12-05 09:14] VITALS: BP 125/72; PULSE 64; TEMP 97.8
[2020-12-05] MEDS: INSULIN ASPART (NovoLOG) 100 UNIT/ML VIAL SQ SCH ×2 (09:26→12:05)
--- NOTE | 2020-12-05 10:20 | P.CRDCN ---
History of Present Illness Consult date: 12/05/20 History of present illness: CHIEF COMPLAINT: Chest pain HISTORY OF PRESENT ILLNESS: This is a 65-year-old male with a past medical history significant for hypertension, hyperlipidemia, diabetes mellitus, atrial fibrillation, and coronary artery disease with previous stent placement. Patient reports he has had 2 stents placed in his heart in the last one was in 2011. He denies having any recent cardiac cath or stress test performed.. Patient follows in the office with Dr. Briceño. We have been asked to see the patient in consultation for chest pain. Patient examined at the bedside. Patient states he has been having heartburn type symptoms for the past 3-4 days. He states he rarely gets heartburn so this is unusual for him. He states he had an episode of emesis once secondary to the pain. He denies any radiation of the symptoms. He denies any shortness of breath. Denies dizziness or lightheadedness. Patient states the pain is unrelated to food. He reports he has not been able to sleep all the past 3-4 days secondary to the discomfort. DIAGNOSTICS: EKG reveals sinus rhythm with no signs of acute ischemia Chest xray negative for acute process Laboratory data: WBC 8.8. Hemoglobin 15.0. Platelet count 183. INR 2.8. Sodium 135. Potassium 5.1. BUN 20. Creatinine 1.31. Troponin negative 3. Current home cardiac medications include Crestor 20 mg daily, metoprolol 50 mg daily, Coumadin 5 mg Thursday and 2.5 mg Thursday, Cozaar 50 mg daily, and Zetia 10 mg daily REVIEW OF SYSTEMS: At the time of my exam: CONSTITUTIONAL: Denies fever or chills. HEENT: Denies blurred vision, vision changes, or eye pain. Denies hemoptysis CARDIOVASCULAR: Denies chest pain, orthopnea, PND or palpitations RESPIRATORY: No shortness of breath. GASTROINTESTINAL: Denies abdominal pain. Denies nausea or vomiting. HEMATOLOGIC: Denies bleeding disorders. GENITOURINARY: Denies any blood in urine. SKIN: Denies pruitis. Denies rash. PHYSICAL EXAM: VITAL SIGNS: Reviewed. GENERAL: Well-developed in no acute distress. HEENT: Head is normocephalic. Pupils are equal, round. Sclerae anicteric. Mucous membranes of the mouth are moist. Neck supple. No JVD or thyromegaly LUNGS: Respirations even and unlabored. Lungs essentially clear to auscultation bilaterally. HEART: Regular rate and rhythm. S1 and S2 heard. ABDOMEN: Soft. Nondistended. Nontender. EXTREMITIES: Normal range of motion. No clubbing or cyanosis. Peripheral pulses intact. No lower extremity edema NEUROLOGIC: Awake and alert. Oriented x 3. ASSESSMENT: Epigastric pain, troponins negative 3 Hypertension Hyperlipidemia Coronary artery disease with previous PCI 2, last in 2011 per patient Paroxysmal atrial fibrillation on long-term anticoagulation with Coumadin History of cardiac ablation PLAN: Resume home cardiac medications Obtain 2-D echo to assess cardiac structure and function Patient to undergo Lexiscan stress test today to assess for reversible ischemia If no significant abnormalities on echocardiogram and stress test is negative, the patient may be discharged home today from a cardiac standpoint and follow up outpatient with Dr. Briceño Nurse practitioner note has been reviewed by physician. Signing provider agrees with the documented findings, assessment, and plan of care. Past Medical History Past Medical History: Atrial Fibrillation, Diabetes Mellitus, Hyperlipidemia, Hypertension, Myocardial Infarction ([place]), Osteoarthritis (OA) Additional Past Medical History / Comment(s): SEE DR BRICEÑO H&P FOR CARDIAC HISTORY Last Myocardial Infarction Date:: 2011 History of Any Multi-Drug Resistant Organisms: None Reported Past Surgical History: Cardiac Ablation, Heart Catheterization With Stent Additional Past Surgical History / Comment(s): CYSTS REMOVED FROM TAILBONE AND BY RECTUM, RIGHT KNEE QUADRICEPT REPAIR Past Anesthesia/Blood Transfusion Reactions: No Reported Reaction Date of Last Stent Placement:: 2011 Past Psychological History: No Psychological Hx Reported Smoking Status: Former smoker Past Alcohol Use History: Occasional Past Drug Use History: None Reported - Past Family History Brother(s) History Unknown: Yes Sister(s) History Unknown: Yes Father Additional Family Medical History / Comment(s): smoked had emyphsema at age 40 Mother Family Medical History: Cancer, Congestive Heart Failure (CHF) Additional Family Medical History / Comment(s): rectal cancer Medications and Allergies Home Medications Medication Instructions Recorded Confirmed Type Ezetimibe [Zetia] 10 mg PO DAILY 01/15/15 12/04/20 History metFORMIN HCL 1,000 mg PO BID 01/15/15 12/04/20 History Losartan [Cozaar] 50 mg PO DAILY #30 tab 06/06/16 12/04/20 Rx Warfarin Sodium [Coumadin] 2.5 mg PO SUMOWEFR 04/05/17 12/04/20 History Warfarin [Coumadin] 5 mg PO TUTHSA 04/05/17 12/04/20 History Pioglitazone [Actos] 30 mg PO DAILY 06/18/18 12/04/20 History Ergocalciferol [Vitamin D2 50,000 unit PO FR 12/04/20 12/04/20 History (DRISDOL)] Ferrous Sulfate [Iron (65 MG 325 mg PO DAILY 12/04/20 12/04/20 History Elemental)] INSULIN LISPRO (For Pump) [humaLOG 0.01 units SQ-PUMP CONTINUOUS 12/04/20 12/04/20 History (For Pump)] Metoprolol Succinate [Toprol XL] 50 mg PO DAILY 12/04/20 12/04/20 History Rosuvastatin Calcium [Crestor] 20 mg PO DAILY 12/04/20 12/04/20 History Semaglutide [Ozempic] 1 mg SQ TH 12/04/20 12/04/20 History Tiotropium 2.5 Mcg/Puff [Spiriva 2 puff INHALATION RT-DAILY 12/04/20 12/04/20 History Respimat 2.5 Mcg] Allergies Allergy/AdvReac Type Severity Reaction Status Date / Time ramipril [From Altace] Allergy Rash/Hives Verified 12/04/20 18:29 Physical Exam Vitals: Vital Signs Temp Pulse Pulse Resp BP BP Pulse Ox 12/05/20 09:00 64 16 12/05/20 08:04 97.8 F 64 16 125/72 97 12/05/20 07:45 78 12/05/20 07:39 78 96 12/05/20 03:20 98.2 F 60 16 115/65 97 12/04/20 20:17 97.6 F 69 16 150/82 99 12/04/20 19:35 68 16 160/75 100 12/04/20 15:44 98.0 F 74 18 134/77 98 Intake and Output 12/04/20 12/05/20 12/05/20 22:59 06:59 14:59 Other: Voiding Method Toilet Toilet Toilet # Voids 1 1 Weight 117.934 kg Results 12/04/20 16:34 12/04/20 16:34 Cardiac Enzymes 12/04/20 12/04/20 12/04/20 Range/Units 16:34 16:34 20:02 AST 28 (17-59) U/L Troponin I <0.012 <0.012 (0.000-0.034) ng/mL 12/04/20 Range/Units 22:42 AST (17-59) U/L Troponin I <0.012 (0.000-0.034) ng/mL Coagulation 12/04/20 Range/Units 16:34 PT 27.2 H (9.0-12.0) sec APTT 33.1 H (22.0-30.0) sec Lipids 12/05/20 Range/Units 07:27 Triglycerides 83 (<150) mg/dL Cholesterol 123 (<200) mg/dL HDL Cholesterol 41 (40-60) mg/dL CBC 12/04/20 Range/Units 16:34 WBC 8.8 (3.8-10.6) k/uL RBC 5.22 (4.30-5.90) m/uL Hgb 15.0 (13.0-17.5) gm/dL Hct 46.1 (39.0-53.0) % Plt Count 183 (150-450) k/uL Comprehensive Metabolic Panel 12/04/20 Range/Units 16:34 Sodium 135 L (137-145) mmol/L Potassium 5.1 (3.5-5.1) mmol/L Chloride 103 (98-107) mmol/L Carbon Dioxide 27 (22-30) mmol/L BUN 20 (9-20) mg/dL Creatinine 1.31 H (0.66-1.25) mg/dL Glucose 277 H (74-99) mg/dL Calcium 9.2 (8.4-10.2) mg/dL AST 28 (17-59) U/L ALT 23 (4-49) U/L Alkaline Phosphatase 63 (38-126) U/L Total Protein 6.7 (6.3-8.2) g/dL Albumin 3.6 (3.5-5.0) g/dL Current Medications Generic Name Dose Route Start Last Admin Trade Name Freq PRN Reason Stop Dose Admin Acetaminophen 650 mg 12/04/20 23:32 Acetaminophen Tab 325 Mg Tab PO Q6HR PRN Fever and/ or Pain Aminophylline 100 mg 12/05/20 08:44 Aminophylline 500 Mg/20 Ml Vial IV 12/05/20 12:45 ONCE PRN Patient Response Atorvastatin Calcium 40 mg 12/05/20 09:00 Atorvastatin 40 Mg Tab PO DAILY [facility] Caffeine Citrate 60 mg 12/05/20 08:44 Caffeine Citrate 60 Mg/3 Ml Vial IV 12/05/20 12:45 ONCE PRN Patient Response Ezetimibe 10 mg 12/05/20 09:00 Ezetimibe 10 Mg Tab PO DAILY [facility] Ergocalciferol 50,000 unit 12/07/20 09:00 Ergocalciferol 50,000 Unit Cap PO FR [facility] Insulin Aspart 0 unit 12/05/20 07:30 12/05/20 09:26 Insulin Aspart (Novolog) 100 Unit/Ml Vial SQ Not Given ACHS [facility] Protocol Insulin Human Lispro 0.01 unit 12/04/20 23:30 Insulin Lispro (For Pump) 100 Unit/Ml Vial SQ-PUMP CONTINUOUS [facility] Ipratropium [place] 0.5 mg 12/05/20 08:00 12/05/20 07:39 Ipratropium 0.5 Mg/2.5 Ml Nebu INHALATION 0.5 mg RT-QID [facility] Administration Losartan Potassium 50 mg 12/05/20 09:00 Losartan 50 Mg Tab PO DAILY [facility] Metoprolol Succinate 50 mg 12/05/20 09:00 Metoprolol Succinate (Er) 50 Mg Tab.Er.24h PO DAILY [facility] Miscellaneous Information 1 each 12/04/20 23:30 Warfarin Per Pharmacy MISCELLANE DIRECTED PRN Per Protocol Protocol Pantoprazole Sodium 40 mg 12/05/20 09:00 Pantoprazole 40 Mg/10 Ml Vial IVP DAILY [facility] Regadenoson 0.4 mg 12/05/20 08:44 Regadenoson 0.4 Mg/5 Ml Syringe IV 12/05/20 12:45 ONCE PRN Per Protocol Warfarin Sodium 2.5 mg 12/05/20 18:00 Warfarin 2.5 Mg Tab PO [email or web address] [facility] Warfarin Sodium 5 mg 12/06/20 18:00 Warfarin 5 Mg Tab PO [email or web address] [facility] Intake and Output 12/04/20 12/05/20 12/05/20 22:59 06:59 14:59 Other: Voiding Method Toilet Toilet Toilet # Voids 1 1 Weight 117.934 kg 12/04/20 16:34 12/04/20 16:34
[2020-12-05 11:55] LABS: Glucose,Whole Blood 198 mg/dL (75-99)
--- NOTE | 2020-12-05 11:55 | EST ---
EXERCISE STRESS AGE: 65 SEX: Male HT: 72" WT: 260 PROTOCOL: Lexiscan Cardiolite STAGE: DURATION OF EXERCISE: HEART RATE REST: 65 BLOOD PRESSURE REST: 134/69 MAXIMUM HEART RATE ACHIEVED: 80 MAXIMUM BLOOD PRESSURE: 137/67 85% MPHR: 132 100% MPHR: METS: INDICATIONS: Chest pain. CLINICAL INFORMATION: Baseline EKG shows sinus rhythm, normal axis, normal intervals. Patient was given intravenous Lexiscan as per protocol. Did not have chest pain or diagnostic ST-segment depression. CONCLUSIONS: 1. Negative stress test by EKG criteria. 2. Cardiolite portion of the stress test will be reported separately. MMODL / IJN: [id number] /
--- NOTE | 2020-12-05 11:58 | NM ---
EXAMINATION TYPE: NM stress lexiscan cardiolite DATE OF EXAM: 12/05/2020 COMPARISON: NONE HISTORY: Chest pain. History of hypertension and diabetes along with prior tobacco use. History of [place] PD and hypercholesteremia. Family history of heart attack. TECHNIQUE: After the intravenous administration of 8.4 mCi Tc 99m Sestamibi - Cardiolite resting SPE CT images acquired 45 minutes post injection. The patient received 0.4mg Lexiscan, 24.9 mCi Tc 99m Sestamibi - Stress images obtained [address] injection FINDINGS: Review of stress and rest SPECT images demonstrates no distinct perfusion abnormality. Gated analysi s shows normal wall motion with an estimated left ventricular ejection fraction of 69 %. IMPRESSION: No scintigraphic evidence for reversible ischemia.
--- NOTE | 2020-12-05 12:08 | P.HPIM ---
History of Present Illness Patient is a pleasant 63-year-old male with known history of coronary artery disease and previous stents came in with complaints of epigastric burning sensation has been going on for about a week mostly happens early in the morning at nighttime associated nausea. Patient was admitted for ruling out acute coronary syndromes concerning his risk factors and previous history of coronary artery disease. Patient was evaluated by cardiology troponins were negative. EKGs did not show any acute ST-T wave changes patient underwent stress test if that's negative patient will be discharged today. Patient will be discharged on Prilosec 20 mg twice a day for 15 days. Review of Systems REVIEW OF SYSTEMS: CONSTITUTIONAL: No fever, no malaise, no fatigue. HEENT: No recent visual problems or hearing problems. Denied any sore throat. CARDIOVASCULAR: No orthopnea, PND, no palpitations, no syncope. PULMONARY: No shortness of breath, no cough, no hemoptysis. GASTROINTESTINAL: No diarrhea, no vomiting, no abdominal pain. NEUROLOGICAL: No headaches, no weakness, no numbness. HEMATOLOGICAL: Denies any bleeding or petechiae. GENITOURINARY: Denies any burning micturition, frequency, or urgency. MUSCULOSKELETAL/RHEUMATOLOGICAL: Denies any joint pain, swelling, or any muscle pain. ENDOCRINE: Denies any polyuria or polydipsia. The rest of the 14-point review of systems is negative. Past Medical History Past Medical History: Atrial Fibrillation, Diabetes Mellitus, Hyperlipidemia, Hypertension, Myocardial Infarction ([place]), Osteoarthritis (OA) Additional Past Medical History / Comment(s): SEE DR GUSTAFSON H&P FOR CARDIAC HISTORY Last Myocardial Infarction Date:: 2011 History of Any Multi-Drug Resistant Organisms: None Reported Past Surgical History: Cardiac Ablation, Heart Catheterization With Stent Additional Past Surgical History / Comment(s): CYSTS REMOVED FROM TAILBONE AND BY RECTUM, RIGHT KNEE QUADRICEPT REPAIR Past Anesthesia/Blood Transfusion Reactions: No Reported Reaction Date of Last Stent Placement:: 2011 Past Psychological History: No Psychological Hx Reported Smoking Status: Former smoker Past Alcohol Use History: Occasional Past Drug Use History: None Reported - Past Family History Brother(s) History Unknown: Yes Sister(s) History Unknown: Yes Father Additional Family Medical History / Comment(s): smoked had emsanjaysema at age 40 Mother Family Medical History: Cancer, Congestive Heart Failure (CHF) Additional Family Medical History / Comment(s): rectal cancer Medications and Allergies Home Medications Medication Instructions Recorded Confirmed Type Ezetimibe [Zetia] 10 mg PO DAILY 01/15/15 12/04/20 History metFORMIN HCL 1,000 mg PO BID 01/15/15 12/04/20 History Losartan [Cozaar] 50 mg PO DAILY #30 tab 06/06/16 12/04/20 Rx Warfarin Sodium [Coumadin] 2.5 mg PO SUMOWEFR 04/05/17 12/04/20 History Warfarin [Coumadin] 5 mg PO TUTHSA 04/05/17 12/04/20 History Pioglitazone [Actos] 30 mg PO DAILY 06/18/18 12/04/20 History Ergocalciferol [Vitamin D2 50,000 unit PO FR 12/04/20 12/04/20 History (DRISDBIANCA)] Ferrous Sulfate [Iron (65 MG 325 mg PO DAILY 12/04/20 12/04/20 History Elemental)] INSULIN LISPRO (For Pump) [humaLOG 0.01 units SQ-PUMP CONTINUOUS 12/04/20 12/04/20 History (For Pump)] Metoprolol Succinate [Toprol XL] 50 mg PO DAILY 12/04/20 12/04/20 History Rosuvastatin Calcium [Crestor] 20 mg PO DAILY 12/04/20 12/04/20 History Semaglutide [Ozempic] 1 mg SQ TH 12/04/20 12/04/20 History Tiotropium 2.5 Mcg/Puff [Spiriva 2 puff INHALATION RT-DAILY 12/04/20 12/04/20 History Respimat 2.5 Mcg] Omeprazole [PriLOSEC] 20 mg PO AC-BID #30 capsule. 12/05/20 Rx Allergies Allergy/AdvReac Type Severity Reaction Status Date / Time ramipril [From Altace] Allergy Rash/Hives Verified 12/04/20 18:29 Physical Exam Vitals: Vital Signs Temp Pulse Pulse Resp BP BP Pulse Ox 12/05/20 09:00 64 16 12/05/20 08:04 97.8 F 64 16 125/72 97 12/05/20 07:45 78 12/05/20 07:39 78 96 12/05/20 03:20 98.2 F 60 16 115/65 97 12/04/20 20:17 97.6 F 69 16 150/82 99 12/04/20 19:35 68 16 160/75 100 12/04/20 15:44 98.0 F 74 18 134/77 98 Intake and Output 12/04/20 12/05/20 12/05/20 22:59 06:59 14:59 Other: Voiding Method Toilet Toilet Toilet # Voids 1 1 Weight 117.934 kg 117.93 kg PHYSICAL EXAMINATION: GENERAL: The patient is alert and oriented x3, not in any acute distress. Well developed, well nourished. HEENT: Pupils are round and equally reacting to light. EOMI. No scleral icterus. No conjunctival pallor. Normocephalic, atraumatic. No pharyngeal erythema. No thyromegaly. CARDIOVASCULAR: S1 and S2 present. No murmurs, rubs, or gallops. PULMONARY: Chest is clear to auscultation, no wheezing or crackles. ABDOMEN: Soft, nontender, nondistended, normoactive bowel sounds. No palpable organomegaly. MUSCULOSKELETAL: No joint swelling or deformity. EXTREMITIES: No cyanosis, clubbing, or pedal edema. NEUROLOGICAL: Gross neurological examination did not reveal any focal deficits. SKIN: No rashes. Results CBC & Chem 7: 12/04/20 16:34 12/04/20 16:34 Labs: Abnormal Lab Results - Last 24 Hours (Table) 12/04/20 12/04/20 12/04/20 Range/Units 16:34 16:34 23:01 PT 27.2 H (9.0-12.0) sec INR 2.8 H (<1.2) APTT 33.1 H (22.0-30.0) sec Sodium 135 L (137-145) mmol/L Creatinine 1.31 H (0.66-1.25) mg/dL Glucose 277 H (74-99) mg/dL POC Glucose (mg/dL) 149 H (75-99) mg/dL 12/05/20 12/05/20 Range/Units 06:17 11:53 PT (9.0-12.0) sec INR (<1.2) APTT (22.0-30.0) sec Sodium (137-145) mmol/L Creatinine (0.66-1.25) mg/dL Glucose (74-99) mg/dL POC Glucose (mg/dL) 173 H 198 H (75-99) mg/dL Thrombosis Risk Factor Assmnt - Choose All That Apply Any of the Below Risk Factors Present?: Yes Each Factor Represents 1 point: Obesity (BMI >25) Other Risk Factors: Yes Each Risk Factor Represents 2 Points: Age 61-74 years Thrombosis Risk Factor Assessment Total Risk Factor Score: 3 Thrombosis Risk Factor Assessment Level: Moderate Risk Assessment and Plan Plan: -Chest pain ruled out acute coronary syndromes. Stresses is negative patient will be discharged patient most probably had gastroesophageal reflux disease management as mentioned above -Hypertension -Coronary artery disease. The previous PTCA twice in the past. -Proximal atrial fibrillation on long-term anti-correlation on Coumadin therapy can Coumadin and patient is presently sinus rhythm -Type 2 diabetes mellitus: Patient has chronic kidney disease creatinine is 1.3. Patient is on multiple medications including metformin if he is a kidney function worsens even more than what it is now, This metformin may need to be discontinued. Patient follows up with nephrology as an outpatient Patient will be discharged today
--- NOTE | 2020-12-05 12:10 | P.DS ---
Providers Date of admission: 12/04/20 19:16 Attending physician: Angela Tay Consults: 12/04/20 18:45 Consult Physician Routine Consulting Provider: [facility] Consult Reason/Comments: chest pain, h/o CA Do you want consulting provider notified?: Yes Primary care physician: Francheska Guerrero [facility] Course: Please refer to my HPI for further details Plan - Discharge Summary Discharge Rx Participant: No New Discharge Prescriptions: New Omeprazole [PriLOSEC] 20 mg PO AC-BID #30 capsule.dr Continue metFORMIN HCL 1,000 mg PO BID Ezetimibe [Zetia] 10 mg PO DAILY Losartan [Cozaar] 50 mg PO DAILY #30 tab Warfarin [Coumadin] 5 mg PO TUTHSA Warfarin Sodium [Coumadin] 2.5 mg PO SUMOWEFR Pioglitazone [Actos] 30 mg PO DAILY INSULIN LISPRO (For Pump) [humaLOG (For Pump)] 0.01 units SQ-PUMP CONTINUOUS Semaglutide [Ozempic] 1 mg SQ TH Rosuvastatin Calcium [Crestor] 20 mg PO DAILY Metoprolol Succinate [Toprol XL] 50 mg PO DAILY Ferrous Sulfate [Iron (65 MG Elemental)] 325 mg PO DAILY Ergocalciferol [Vitamin D2 (DRISDOL)] 50,000 unit PO FR Tiotropium 2.5 Mcg/Puff [Spiriva Respimat 2.5 Mcg] 2 puff INHALATION RT-DAILY Discharge Medication List Ezetimibe [Zetia] 10 mg PO DAILY 01/15/15 [History] metFORMIN HCL 1,000 mg PO BID 01/15/15 [History] Losartan [Cozaar] 50 mg PO DAILY #30 tab 06/06/16 [Rx] Warfarin Sodium [Coumadin] 2.5 mg PO SUMOWEFR 04/05/17 [History] Warfarin [Coumadin] 5 mg PO TUTHSA 04/05/17 [History] Pioglitazone [Actos] 30 mg PO DAILY 06/18/18 [History] Ergocalciferol [Vitamin D2 (DRISDOL)] 50,000 unit PO FR 12/04/20 [History] Ferrous Sulfate [Iron (65 MG Elemental)] 325 mg PO DAILY 12/04/20 [History] INSULIN LISPRO (For Pump) [humaLOG (For Pump)] 0.01 units SQ-PUMP CONTINUOUS 12/04/20 [History] Metoprolol Succinate [Toprol XL] 50 mg PO DAILY 12/04/20 [History] Rosuvastatin Calcium [Crestor] 20 mg PO DAILY 12/04/20 [History] Semaglutide [Ozempic] 1 mg SQ TH 12/04/20 [History] Tiotropium 2.5 Mcg/Puff [Spiriva Respimat 2.5 Mcg] 2 puff INHALATION RT-DAILY 12/04/20 [History] Omeprazole [PriLOSEC] 20 mg PO AC-BID #30 capsule. 12/05/20 [Rx] Follow up Appointment(s)/Referral(s): Zeferino Briceño MD [STAFF PHYSICIAN] - 1 Week Francheska Guerrero MD [Primary Care Provider] - 3 Days Discharge Disposition: HOME SELF-CARE
--- NOTE | 2020-12-05 17:16 | ECHOF ---
Referral Reason:chest pain, LV function MEASUREMENTS -------- HEIGHT: 182.9 cm WEIGHT: 122.0 kg BP: RVIDd: 3.3 cm (< 3.3) IVSd: 1.1 cm (0.6 - 1.1) LVIDd: 4.4 cm (3.9 - 5.3) LVPWd: 1.1 cm (0.6 - 1.1) IVSs: 1.5 cm LVIDs: 2.6 cm LVPWs: 1.4 cm LA Diam: 3.2 cm (2.7 - 3.8) LAESV Index (A-L): 21.02 ml/m Ao Diam: 2.8 cm (2.0 - 3.7) AV Cusp: 1.5 cm (1.5 - 2.6) LA Diam: 3.8 cm (2.7 - 3.8) MV EXCURSION: 15.119 mm (> 18.000) MV EF SLOPE: 77 mm/s (70 - 150) EPSS: 0.5 cm MV E Zach: 0.73 m/s MV DecT: 203 ms MV A Zach: 0.39 m/s MV E/A Ratio: 1.89 RAP: 5.00 mmHg RVSP: 13.59 mmHg FINDINGS -------- Sinus rhythm. This was a technically adequate study. LV size, wall thickness and systolic function are normal, with an EF greater than 55%. The left alexandro tricular size is normal. The right ventricle is normal in size. Normal LA size by volume 22+/-6 ml/m2. The right atrial size is normal. There is mild aortic valve sclerosis. There is no evidence of aortic regurgitation. Mild mitral regurgitation is present. Mild tricuspid regurgitation present. Right ventricular systolic pressure is normal at < 35 mmHg. There is no pulmonic regurgitation present. The aortic root size is normal. There is no pericardial effusion. CONCLUSIONS -------- 1. LV size, wall thickness and systolic function are normal, with an EF greater than 55%. 2. The left ventricular size is normal. 3. The right ventricle is normal in size. 4. Normal LA size by volume 22+/-6 ml/m2. 5. The right atrial size is normal. 6. There is mild aortic valve sclerosis. 7. Mild mitral regurgitation is present. 8. Mild tricuspid regurgitation present. 9. The aortic root size is normal. 10. There is no pericardial effusion. PULLMAN CLERK: Miracle Montano RDCS
[2020-12-05] MEDS ORDERED: WARFARIN 2.5 MG TAB PO SCH (18:00)
[2020-12-06] MEDS ORDERED: PANTOPRAZOLE 40 MG TABLET PO SCH (07:30)
[2020-12-06] MEDS ORDERED: WARFARIN 5 MG TAB PO SCH (18:00)
[2020-12-07] MEDS ORDERED: ERGOCALCIFEROL 50,000 UNIT CAP PO SCH (09:00)
== END 2020-12-05 13:33 | disposition home or self-care (01) ==
LOC: EC 15:42 → 1SOBS 19:16
PROVIDERS: ADMIT Hospitalist; ATTEND Hospitalist
DX: R07.9 Chest pain, unspecified (principal); I10 Essential (primary) hypertension; I25.10 Atherosclerotic heart disease of native coronary artery without angina pectoris; I12.9 Hypertensive chronic kidney disease with stage 1 through stage 4 chronic kidney disease, or unspecified chronic kidney disease; E11.22 Type 2 diabetes mellitus with diabetic chronic kidney disease; N18.9 Chronic kidney disease, unspecified; Z96.41 Presence of insulin pump (external) (internal); Z95.5 Presence of coronary angioplasty implant and graft; E78.5 Hyperlipidemia, unspecified; I25.2 Old myocardial infarction; M19.90 Unspecified osteoarthritis, unspecified site; Z98.890 Other specified postprocedural states; Z87.891 Personal history of nicotine dependence; Z82.49 Family history of ischemic heart disease and other diseases of the circulatory system; Z80.0 Family history of malignant neoplasm of digestive organs; Z79.4 Long term (current) use of insulin; Z79.01 Long term (current) use of anticoagulants; Z79.899 Other long term (current) drug therapy
CPT/HCPCS: 93005 ×2; 96375; 96374; 99285; 36415; 94640; 94760; 93017; 93306; 83880; 80061; 80053; 82150; 83690; 83735; 84484; 85025; 85610; 85730; 87635; 71046; 78452; G0378 ×2; A9500; J2785; C9113

== ENCOUNTER 2021-10-07 20:03 | Emergency (ER) | payer MEDICARE ==
[2021-10-07 20:18] VITALS: TEMP 98.1
--- NOTE | 2021-10-07 22:27 | XR ---
EXAMINATION TYPE: XR chest 2V DATE OF EXAM: 10/07/2021 COMPARISON: 12/04/2020 HISTORY: Short of breath TECHNIQUE: 2 views FINDINGS: There is some mild pleural reaction at the lung bases. Heart size is normal. There is no he art failure. There is old right side lateral healed rib fracture. IMPRESSION: There is some pleural reaction and fluid at the lung bases which is new compared to old e xam. No obvious heart failure. Normal heart.
[2021-10-08] MEDS ORDERED: predniSONE 20 MG TAB PO STA (00:31)
[2021-10-08] MEDS ORDERED: IPRATROPIUM-ALBUTEROL 3 ML NEB INHALATION STA (00:31)
--- NOTE | 2021-10-08 00:35 | ED ---
SOB HPI - General Chief Complaint: Shortness of Breath Stated Complaint: SOB,COPD Time Seen by Provider: 10/08/21 00:21 Source: police, EMS Mode of arrival: EMS Limitations: no limitations - History of Present Illness Initial Comments: This patient is 65-year-old man with history of COPD who presents with complaints of cough (nonproductive) and shortness of breath. Patient states that his symptoms had started approximately 2 weeks ago. The patient and his had a nonproductive cough. He had seen his physician and was given course of azithromycin and a steroid. The patient states that he felt better while taking that but has had recurrence of his symptoms now. No fever or chills. No chest pain. The dyspnea is mostly when he exerts himself. No change in urination, bowel movements. No leg pain or swelling. MD Complaint: shortness of breath, cough Onset/Timin -: week(s) Consistency: intermittent Improves With: nothing Worsens With: exertion Known History Of: COPD Context: recent URI - Related Data Home Oxygen Therapy: No Home Medications Medication Instructions Recorded Confirmed Ezetimibe [Zetia] 10 mg PO DAILY 01/15/15 12/04/20 metFORMIN HCL [Glucophage] 1,000 mg PO BID 01/15/15 12/04/20 Warfarin Sodium [Coumadin] 2.5 mg PO SUMOWEFR 04/05/17 12/04/20 Warfarin [Coumadin] 5 mg PO TUTHSA 04/05/17 12/04/20 Pioglitazone [Actos] 30 mg PO DAILY 06/18/18 12/04/20 Ergocalciferol [Vitamin D2 50,000 unit PO FR 12/04/20 12/04/20 (DRISDOL)] Ferrous Sulfate [Iron (65 MG 325 mg PO DAILY 12/04/20 12/04/20 Elemental)] INSULIN LISPRO (For Pump) [humaLOG 0.01 units SQ-PUMP CONTINUOUS 12/04/20 12/04/20 (For Pump)] Metoprolol Succinate [Toprol XL] 50 mg PO DAILY 12/04/20 12/04/20 Rosuvastatin Calcium [Crestor] 20 mg PO DAILY 12/04/20 12/04/20 Semaglutide [Ozempic] 1 mg SQ TH 12/04/20 12/04/20 Tiotropium 2.5 Mcg/Puff [Spiriva 2 puff INHALATION RT-DAILY 12/04/20 12/04/20 Respimat 2.5 Mcg] Previous Rx's Medication Instructions Recorded Losartan [Cozaar] 50 mg PO DAILY #30 tab 06/06/16 Omeprazole [PriLOSEC] 20 mg PO AC-BID #30 capsule. 12/05/20 predniSONE 60 mg PO DAILY #30 tab 10/08/21 Allergies Allergy/AdvReac Type Severity Reaction Status Date / Time ramipril [From Altace] Allergy Rash/Hives Verified 12/04/20 18:29 semaglutide [From Ozempic] AdvReac Vomiting Verified 10/07/21 20:19 Review of Systems ROS Statement: Those systems with pertinent positive or pertinent negative responses have been documented in the HPI. ROS Other: All systems not noted in ROS Statement are negative. Constitutional: Denies: fever, chills, weakness Respiratory: Reports: cough, dyspnea, wheezes Cardiovascular: Reports: dyspnea on exertion. Denies: chest pain, palpitations, orthopnea, edema, syncope Gastrointestinal: Denies: abdominal pain, nausea, vomiting, melena, hematochezia Genitourinary: Denies: dysuria, hematuria Musculoskeletal: Denies: back pain Skin: Denies: rash Neurological: Denies: headache, weakness Past Medical History Past Medical History: Atrial Fibrillation, COPD, Diabetes Mellitus, Hyperlipidemia, Hypertension, Myocardial Infarction (PR), Osteoarthritis (OA) Additional Past Medical History / Comment(s): SEE DR GUSTAFSON H&P FOR CARDIAC HISTORY Last Myocardial Infarction Date:: 2011 History of Any Multi-Drug Resistant Organisms: None Reported Past Surgical History: Cardiac Ablation, Heart Catheterization With Stent Additional Past Surgical History / Comment(s): CYSTS REMOVED FROM TAILBONE AND BY RECTUM, RIGHT KNEE QUADRICEPT REPAIR Past Anesthesia/Blood Transfusion Reactions: No Reported Reaction Date of Last Stent Placement:: 2011 Past Psychological History: No Psychological Hx Reported Smoking Status: Former smoker Past Alcohol Use History: Occasional Past Drug Use History: None Reported - Past Family History Brother(s) History Unknown: Yes Sister(s) History Unknown: Yes Father Additional Family Medical History / Comment(s): smoked had emyphsema at age 40 Mother Family Medical History: Cancer, Congestive Heart Failure (CHF) Additional Family Medical History / Comment(s): rectal cancer General Exam Limitations: no limitations General appearance: alert, in no apparent distress Head exam: Present: atraumatic, normocephalic Eye exam: Present: normal appearance. Absent: scleral icterus, conjunctival injection Neck exam: Present: normal inspection Respiratory exam: Present: normal lung sounds bilaterally, wheezes, decreased breath sounds. Absent: respiratory distress, rales, rhonchi, stridor, accessory muscle use Cardiovascular Exam: Present: regular rate, normal rhythm, normal heart sounds. Absent: systolic murmur, diastolic murmur, rubs, gallop GI/Abdominal exam: Present: soft. Absent: distended, tenderness, guarding, rebound, rigid, mass Extremities exam: Present: normal inspection, normal capillary refill. Absent: pedal edema, calf tenderness Back exam: Present: normal inspection. Absent: CVA tenderness (R), CVA tenderness (L) Neurological exam: Present: alert Skin exam: Present: warm, dry, intact, normal color. Absent: rash Course Vital Signs 10/07/21 10/08/21 10/08/21 20:14 01:18 02:05 Temperature 98.1 F Pulse Rate 65 54 L 54 L Respiratory 25 H 18 Rate Blood Pressure 149/57 139/68 O2 Sat by Pulse 93 L 95 Oximetry 10/08/21 02:19 Temperature Pulse Rate 54 L Respiratory Rate Blood Pressure O2 Sat by Pulse Oximetry Medical Decision Making - Lab Data Result diagrams: 10/08/21 01:22 10/08/21 01:22 Lab Results 10/07/21 10/08/21 10/08/21 Range/Units 20:27 01:22 01:22 WBC 8.0 (3.8-10.6) k/uL RBC 4.00 L (4.30-5.90) m/uL Hgb 11.6 L (13.0-17.5) gm/dL Hct 36.5 L (39.0-53.0) % MCV 91.3 (80.0-100.0) fL MCH 29.0 (25.0-35.0) pg MCHC 31.8 (31.0-37.0) g/dL RDW 15.5 (11.5-15.5) % Plt Count 183 (150-450) k/uL MPV 7.5 Neutrophils % 71 % Lymphocytes % 16 % Monocytes % 7 % Eosinophils % 3 % Basophils % 1 % Neutrophils # 5.7 (1.3-7.7) k/uL Lymphocytes # 1.3 (1.0-4.8) k/uL Monocytes # 0.6 (0-1.0) k/uL Eosinophils # 0.2 (0-0.7) k/uL Basophils # 0.1 (0-0.2) k/uL PT 10.7 (9.0-12.0) sec INR 1.0 (<1.2) APTT 23.6 (22.0-30.0) sec D-Dimer 0.46 (<0.60) mg/L FEU Sodium (137-145) mmol/L Potassium (3.5-5.1) mmol/L Chloride (98-107) mmol/L Carbon Dioxide (22-30) mmol/L Anion Gap mmol/L BUN (9-20) mg/dL Creatinine (0.66-1.25) mg/dL Est GFR (CKD-EPI)AfAm (>60 ml/min/1.73 sqM) Est GFR (CKD-EPI)NonAf (>60 ml/min/1.73 sqM) Glucose (74-99) mg/dL Calcium (8.4-10.2) mg/dL Total Bilirubin (0.2-1.3) mg/dL AST (17-59) U/L ALT (4-49) U/L Alkaline Phosphatase (38-126) U/L Troponin I (0.000-0.034) ng/mL NT-Pro-B Natriuret Pep pg/mL Total Protein (6.3-8.2) g/dL Albumin (3.5-5.0) g/dL Coronavirus (PCR) Not Detected (Not Detectd) 10/08/21 10/08/21 10/08/21 Range/Units 01:22 01:22 01:22 WBC (3.8-10.6) k/uL RBC (4.30-5.90) m/uL Hgb (13.0-17.5) gm/dL Hct (39.0-53.0) % MCV (80.0-100.0) fL MCH (25.0-35.0) pg MCHC (31.0-37.0) g/dL RDW (11.5-15.5) % Plt Count (150-450) k/uL MPV Neutrophils % % Lymphocytes % % Monocytes % % Eosinophils % % Basophils % % Neutrophils # (1.3-7.7) k/uL Lymphocytes # (1.0-4.8) k/uL Monocytes # (0-1.0) k/uL Eosinophils # (0-0.7) k/uL Basophils # (0-0.2) k/uL PT (9.0-12.0) sec INR (<1.2) APTT (22.0-30.0) sec D-Dimer (<0.60) mg/L FEU Sodium 135 L (137-145) mmol/L Potassium 4.9 (3.5-5.1) mmol/L Chloride 106 (98-107) mmol/L Carbon Dioxide 23 (22-30) mmol/L Anion Gap 6 mmol/L BUN 23 H (9-20) mg/dL Creatinine 1.38 H (0.66-1.25) mg/dL Est GFR (CKD-EPI)AfAm 62 (>60 ml/min/1.73 sqM) Est GFR (CKD-EPI)NonAf 53 (>60 ml/min/1.73 sqM) Glucose 98 (74-99) mg/dL Calcium 9.3 (8.4-10.2) mg/dL Total Bilirubin 0.7 (0.2-1.3) mg/dL AST 33 (17-59) U/L ALT 37 (4-49) U/L Alkaline Phosphatase 53 (38-126) U/L Troponin I <0.012 (0.000-0.034) ng/mL NT-Pro-B Natriuret Pep 971 pg/mL Total Protein 6.4 (6.3-8.2) g/dL Albumin 3.4 L (3.5-5.0) g/dL Coronavirus (PCR) (Not Detectd) Disposition Clinical Impression: COPD (chronic obstructive pulmonary disease) Disposition: HOME SELF-CARE Condition: Good Instructions (If sedation given, give patient instructions): COPD (Chronic Obstructive Pulmonary Disease) (ED) Prescriptions: predniSONE 60 mg PO DAILY #30 tab Is patient prescribed a controlled substance at d/c from ED?: No Referrals: Francheska Guerrero MD [Primary Care Provider] - 1-2 days
[2021-10-08 01:30] LABS: Basophils # (A) 0.1 k/uL (0-0.2); Basophils % (A) 1 %; Eosinophils # (A) 0.2 k/uL (0-0.7); Eosinophils % (A) 3 %; HCT 36.5 % (39.0-53.0); HGB 11.6 gm/dL (13.0-17.5); Lymphocytes # (A) 1.3 k/uL (1.0-4.8); Lymphocytes % (A) 16 %; MCHC 31.8 g/dL (31.0-37.0); MCV 91.3 fL (80.0-100.0); Mean Platelet Volume 7.5; Monocytes # (A) 0.6 k/uL (0-1.0); Monocytes % (A) 7 %; Neutrophils # (A) 5.7 k/uL (1.3-7.7); Neutrophils % (A) 71 %; Platelet Count 183 k/uL (150-450); RDW 15.5 % (11.5-15.5)
[2021-10-08 01:31] VITALS: RESP 18
[2021-10-08 01:40] LABS: Albumin 3.4 g/dL (3.5-5.0); Calcium 9.3 mg/dL (8.4-10.2); Potassium 4.9 mmol/L (3.5-5.1); Total Bilirubin 0.7 mg/dL (0.2-1.3); Total Protein 6.4 g/dL (6.3-8.2)
[2021-10-08 01:43] LABS: Partial Thromboplastin Time 23.6 sec (22.0-30.0); Prothrombin Time 10.7 sec (9.0-12.0)
[2021-10-08 02:53] VITALS: BP 145/64; PULSE 57
== END 2021-10-08 02:44 | disposition home or self-care (01) ==
LOC: EC 20:03
DX: J44.9 Chronic obstructive pulmonary disease, unspecified (principal); I48.91 Unspecified atrial fibrillation; E11.9 Type 2 diabetes mellitus without complications; E78.5 Hyperlipidemia, unspecified; I10 Essential (primary) hypertension; I25.2 Old myocardial infarction; M19.90 Unspecified osteoarthritis, unspecified site; Z20.822 Contact with and (suspected) exposure to COVID-19; Z79.01 Long term (current) use of anticoagulants; Z79.4 Long term (current) use of insulin; Z88.1 Allergy status to other antibiotic agents; Z87.891 Personal history of nicotine dependence
CPT/HCPCS: 99285; 36415; 94640; 85379; 83880; 80053; 84484; 85025; 85610; 85730; 87635; 71046; J7512